=== PATIENT | female | born 1945 | race Hispanic/Latino ===

== ENCOUNTER 2017-06-11 13:05 | Emergency (ER) | payer MEDICARE, OTHER ==
[2017-06-11 13:05] VITALS: BMI 32.5
[2017-06-11 14:25] VITALS: RESP 18; O2SAT 100
[2017-06-11 14:46] VITALS: TEMP 98
--- NOTE | 2017-06-11 14:48 | RAD ---
HISTORY: sob COMPARISON: 09/25/2016 FINDINGS: LUNGS: Linear scar/ atelectasis at left lung base. No other abnormal opacity. . PLEURA: No significant pleural effusion identified, no pneumothorax apparent. CARDIOVASCULAR: Normal. OSSEOUS STRUCTURES: No significant abnormalities. VISUALIZED UPPER ABDOMEN: Normal. OTHER FINDINGS: None. IMPRESSION: Linear scar/ atelectasis at left base. Otherwise unremarkable examination.
[2017-06-11 15:03] LABS: BASO # 0.02 K/mm3 (0.0-2.0); BASO % 0.2 % (0.0-3.0); EOS # 0.2 (0.0-0.7); EOS % 1.8 % (1.5-5.0); GRAN # 6.96 (1.4-6.5); HEMATOCRIT 33.5 % (36.0-48.0); LYMPH # 1.8 (1.2-3.4); LYMPH % 19.3 % (22.0-35.0); MEAN CELL VOLUME 88.4 fl (80.0-105.0); MEAN CORPUSCULAR HEMOGLOBIN 29.3 pg (25.0-35.0); MEAN CORPUSCULAR HGB CONC 33.1 g/dl (31.0-37.0); MEAN PLATELET VOLUME 10.4 fl (7.0-11.0); MONO # 0.5 (0.1-0.6); MONO % 5.7 % (1.0-6.0); WHITE BLOOD COUNT 9.5 10^3/ul (4.5-11.0)
[2017-06-11 15:13] LABS: URINE BILIRUBIN NEGATIVE (NEGATIVE); URINE BLOOD TRACE-INTACT (NEGATIVE); URINE GLUCOSE (UA) >=1000 mg/dL (NEGATIVE); URINE KETONE NEGATIVE (NEGATIVE); URINE LEUKOCYTE ESTERASE TRACE Leu/uL (NEGATIVE); URINE PROTEIN NEGATIVE mg/dL (<30 mg/dL); URINE UROBILINOGEN 0.2 E.U./dL (<1 E.U./dL)
[2017-06-11 15:14] LABS: ALB/GLOB RATIO 1.4 (1.1-1.8); BILIRUBIN,TOTAL 0.5 mg/dL (0.2-1.3); CALCIUM 9.9 mg/dL (8.4-10.5); MAGNESIUM 2.3 mg/dL (1.7-2.2); POTASSIUM 4.7 mmol/L (3.6-5.0); TOTAL PROTEIN 7.3 g/dL (5.8-8.3)
[2017-06-11 15:17] LABS: INR 0.99 (0.93-1.08); PARTIAL THROMBOPLASTIN TIME 27.4 Seconds (23.7-30.8)
[2017-06-11 15:17] LABS: URINE APPEARANCE CLEAR (CLEAR); URINE COLOR YELLOW (YELLOW)
[2017-06-11 15:26] LABS: TROPONIN I 0.09 ng/mL
[2017-06-11 15:37] LABS: URINE BACTERIA FEW (NEG); URINE RBC 0 - 2 /hpf (0-2)
[2017-06-11] MEDS ORDERED: Insulin Regular 1 UNITS/0.01 ML ML SC STA (17:05)
--- NOTE | 2017-06-11 17:31 | CARD ---
APPROVED REPORT EKG Measurement Heart [id number] OH 196P59 [id number] <Conclusion> Normal sinus rhythm Left axis deviation Anterolateral infarct, age undetermined Abnormal ECG
--- NOTE | 2017-06-11 19:25 | ED PDOC ---
Arrival/HPI - General Historian: Patient <Catherine Chang - Last Filed: 06/11/17 19:22> <Stevie Quinones - Last Filed: 06/11/17 21:53> - General Chief Complaint: Anxiety Time Seen by Provider: 06/11/17 14:05 - History of Present Illness Narrative History of Present Illness (Text): 06/11/17 19:23 Patient c/o SOB x 1 week. Patient sts she was seen by Dr. Adler who instructed her to come to Ed for evaluation. (Catherine Chang) Past Medical History - Infectious Disease Hx of Infectious Diseases: None - Cardiac Hx Hypertension: Yes - Neurological Hx Paralysis: No - Endocrine/Metabolic Hx Diabetes Mellitus Type 2: Yes - Hematological/Oncological Hx Blood Transfusions: No - Musculoskeletal/Rheumatological Hx Arthritis: Yes - Psychiatric Hx Emotional Abuse: No Hx Physical Abuse: No Hx Substance Use: No - Anesthesia Hx Anesthesia: No Hx Anesthesia Reactions: No Hx Malignant Hyperthermia: No - Suicidal Assessment Feels Threatened In Home Enviroment: No <Catherine Chang - Last Filed: 06/11/17 19:22> Family/Social History Family/Social History: Unknown Family HX Smoking Status: Never Smoked Hx Alcohol Use: No Hx Substance Use: No <Catherine Chang - Last Filed: 06/11/17 19:22> Allergies/Home Meds <Catherine Chang - Last Filed: 06/11/17 19:22> <Stevie Quinones - Last Filed: 06/11/17 21:53> Allergies/Adverse Reactions: Allergies No Known Allergies Allergy (Verified 01/31/12 13:15) Home Medications: Home Meds Medication Instructions Recorded Confirmed Aspirin [Adult Low Dose Aspirin EC] 81 mg PO DAILY 03/31/16 06/11/17 Furosemide [Lasix] 40 mg PO DAILY 03/31/16 06/11/17 Glimepiride [amaRYL] 4 mg PO HS 03/31/16 06/11/17 LORazepam [Ativan] 0.5 mg PO BID 03/31/16 06/11/17 Lisinopril [Zestril] 20 mg PO BID 03/31/16 06/11/17 Metformin HCl [Metformin HCl] 500 mg PO DAILY 03/31/16 06/11/17 Pioglitazone [Actos] 30 mg PO DAILY 03/31/16 06/11/17 Valsartan [Diovan] 40 mg PO DAILY 03/18/17 06/11/17 Review of Systems - Physician Review All systems were reviewed & negative as marked: Yes - Review of Systems Respiratory: SOB. absent: Cough, Sputum, Wheezing Cardiovascular: absent: Chest Pain, Palpitations, Edema, Calf Pain <Catherine Chang - Last Filed: 06/11/17 19:22> Physical Exam Vital Signs Reviewed: Yes Temperature: Afebrile Blood Pressure: Normal Pulse: Regular Respiratory Rate: Normal Appearance: Positive for: Uncomfortable (SOB) Pain Distress: None Mental Status: Positive for: Alert and Oriented X 3, other (mildly anxious) Finger Stick Blood Glucose: 254 - Systems Exam Head: Present: Atraumatic, Abrasion Pupils: Present: PERRL Extroacular Muscles: Present: EOMI Conjunctiva: Present: Normal Respiratory/Chest: Present: Clear to Auscultation, Good Air Exchange. No: Respiratory Distress, Accessory Muscle Use, Wheezes, Decreased Breath Sounds, Rales, Rhonchi, Tender to Palpation Cardiovascular: Present: Regular Rate and Rhythm, Normal S1, S2 Abdomen: Present: Normal Bowel Sounds. No: Tenderness, Distention Back: Present: Normal Inspection. No: Midline Tenderness, Paraspinal Tenderness Upper Extremity: Present: Normal Inspection, Normal ROM Lower Extremity: Present: Normal Inspection. No: Edema, CALF TENDERNESS Neurological: Present: GCS=15, Motor Func Grossly Intact, Normal Sensory Function Skin: Present: Warm. No: Rashes <Catherine Chang - Last Filed: 06/11/17 19:22> Vital Signs Temp Pulse Resp BP Pulse Ox 06/11/17 14:45 98.0 F 74 18 142/62 100 06/11/17 13:05 98.7 F 88 18 100 Medical Decision Making - Transfer of Care Patient signed out to :Cherie Quinones Pending Radiology Studies:: VQ scan <Catherine Chang - Last Filed: 06/11/17 19:22> <Stevie Quinones - Last Filed: 06/11/17 21:53> ED Course and Treatment: 06/11/17 19:29 D-Dimer is selevated. BUN/Creat are elevated. VQ scan ordered. patient was seen in ED by her passenger car upholsterer apprentice and by her PMD . Plan is to do VQ scan, if negative to d/c. (Catherine Chang) 06/11/17 20:20 Patient to follow-up with VQ scan. If results are negative, patient is to follow up with PMD and passenger car upholsterer apprentice. 06/11/17 21:05 NM Lung Perfusion and Ventilation Scan IMPRESSION: No findings to suggest pulmonary embolism. Dictator: Darinel Omer MD 06/11/17 21:43 Patient feels much better and no longer having symptoms. Patient was evaluated by Dr. Velazco and Dr Adler and can follow up with them as an outpatient. Patient wants to go home . She understands to return to the ED if symptoms worsen or any other concerns. (Stevie Quinones) - Lab Interpretations Lab Results: 06/11/17 14:35 06/11/17 14:35 Lab Results 06/11/17 17:53: POC Glucose (mg/dL) 254 H 06/11/17 15:00: D-Dimer, Quantitative 4.92 H 06/11/17 14:55: Urine Color Yellow, Urine Appearance Clear, Urine pH 6.0, Ur Specific Peerless <= 1.005, Urine Protein Negative, Urine Glucose (UA) >=1000, Urine Ketones Negative, Urine Blood Trace-intact H, Urine Nitrate Negative, Urine Bilirubin Negative, Urine Urobilinogen 0.2, Ur Leukocyte Esterase Trace H , Urine RBC 0 - 2, Urine WBC 1 - 3, Ur Epithelial Cells 3 - 4, Urine Bacteria Few 06/11/17 14:35: PT 10.7, INR 0.99, APTT 27.4 06/11/17 14:35: Sodium 140, Potassium 4.7, Chloride 101, Carbon Dioxide 27, Anion Gap 17, BUN 45 H, Creatinine 2.1 H, Est GFR ( Amer) 28, Est GFR ( Non-Af Amer) 23, Random Glucose 327 H* D, Calcium 9.9, Magnesium 2.3 H, Total Bilirubin 0.5, AST 22, ALT 26, Alkaline Phosphatase 63, Lactate Dehydrogenase 550, Total Creatine Kinase 58, Troponin I 0.09 D, NT-Pro-B Natriuret Pep 304, Total Protein 7.3, Albumin 4.2, Globulin 3.1, Albumin/Globulin Ratio 1.4 06/11/17 14:35: WBC 9.5 D, RBC 3.79, Hgb 11.1 L, Hct 33.5 L, MCV 88.4, MCH 29.3 , MCHC 33.1, RDW 15.0 H, Plt Count 378, MPV 10.4, Gran % 73.0 H, Lymph % (Auto) 19.3 L, Emanuel % (Auto) 5.7, Eos % (Auto) 1.8, Baso % (Auto) 0.2, Gran # 6.96 H, Lymph # 1.8, Emanuel # 0.5, Eos # 0.2, Baso # 0.02 - RAD Interpretation Narrative RAD Interpretations (Text): 06/11/17 19:27 Accession No. : [id number] Patient Name / ID : FINN HERNANDEZ / [id number] Exam Date : 06/11/2017 14:30:43 ( Approved ) Study Comment : Sex / Age : F / 72Y Creator : Sawyer Caldwell MD Dictator : Sawyer Caldwell MD Drawer Liner : It Senior Analyst : Sawyer Caldwell MD Approver2 : Report Date : 06/11/2017 14:46:42 My Comment : HISTORY: sob COMPARISON: 09/25/2016 FINDINGS: LUNGS: Linear scar/ atelectasis at left lung base. No other abnormal opacity. . PLEURA: No significant pleural effusion identified, no pneumothorax apparent. CARDIOVASCULAR: Normal. OSSEOUS STRUCTURES: No significant abnormalities. VISUALIZED UPPER ABDOMEN: Normal. OTHER FINDINGS: None. IMPRESSION: Linear scar/ atelectasis at left base. Otherwise unremarkable examination. (Catherine Chang) Radiology Orders: 06/11/17 14:26 CHEST PORTABLE [RAD] Stat 06/11/17 17:07 LUNG PERF & VENT SCAN [NM] Stat - EKG Interpretation EKG Interpretation (Text): 06/11/17 19:28 Report Date : 06/11/2017 17:30:51 My Comment : APPROVED REPORT EKG Measurement Heart Rate 77 AXES SC 196 P 59 QRSd 88 QRS -39 QT 368 T 44 QTc 416 <Conclusion> Normal sinus rhythm Left axis deviation Anterolateral infarct, age undetermined Abnormal ECG (Catherine Chang) - Medication Orders Current Medication Orders: Acetaminophen (Tylenol 325mg Tab) 650 mg PO STAT STA Stop: 06/11/17 21:44 Discontinued Medications Insulin Human Regular (Humulin R) 6 units SC STAT STA PRN Reason: Protocol Stop: 06/11/17 17:06 Last Admin: 06/11/17 21:39 Dose: Not Given Non-Admin Reason: Blood Sugar Parameter Comments: MELISSA Alexander aware, ordered to hold medication due to FS. MAR Blood Glucose Document 06/11/17 21:39 EQ (Rec: 06/11/17 21:39 EQ [id number]) Blood Glucose Finger Stick Blood Glucose (70-120) 254 Disposition/Present on Arrival - Present on Arrival Any Indicators Present on Arrival: Yes History of DVT/PE: No History of Uncontrolled Diabetes: No Urinary Catheter: No History of Decub. Ulcer: No History Surgical Site Infection Following: None - Disposition Have Diagnosis and Disposition been Completed?: Yes Disposition Time: 19:30 <Catherine Chang - Last Filed: 06/11/17 19:22> - Disposition Disposition Time: 21:53 Patient Plan: Discharge <Stevie Quinones - Last Filed: 06/11/17 21:53> - Disposition Diagnosis: SOB (shortness of breath) Disposition: HOME/ ROUTINE Patient Problems: Current Active Problems Problem Status Onset SOB (shortness of breath) Acute Condition: IMPROVED Discharge Instructions (ExitCare): Dyspnea (ED) Additional Instructions: Ms Mendez, thank you for letting us take care of you today. Your provider was Dr. Quinones You were treated for Shortness of breathe. The emergency medical care you received today was directed at your acute symptoms. If you were prescribed any medication, please fill it and take as directed. It may take several days for your symptoms to resolve. Return to the Emergency Department if your symptoms worsen, do not improve, or if you have any other problems. Please contact your doctor or call one of the physicians/clinics you have been referred to that are listed on the Patient Visit Information form that is included in your discharge packet. Bring any paperwork you were given at discharge with you along with any medications you are taking to your follow up visit. Our treatment cannot replace ongoing medical care by a primary care provider (PCP) outside of the emergency department. Thank you for allowing the [facility] team to be part of your care today. If you had an X-Ray or CT scan: A Radiologist will review the ED reading if any change in treatment is needed we will contact you. If you had a blood, urine, or wound culture: It will take several days for the results, if any change in treatment is needed we will contact you. If you had an STI test: It will take 48 hours for the results. Please call after 1 week if you have not heard back. Referrals: Lamont Adler, [Primary Care Provider] - Follow up with primary Forms: [employer] ([place])
[2017-06-11 22:02] VITALS: BP 111/88; PULSE 79
--- NOTE | 2017-06-23 18:46 | NM ---
COMPARISON: TECHNIQUE: 40.0 mCi technetium 99-m DTPA aerosol 4.0 mCI technetium 99-m MAA administered intravenously. FINDINGS: VENTILATION COMPONENT: Normal. PERFUSION COMPONENT: Normal. The report concurs with the preliminary [facility] report IMPRESSION: Lowprobability ventilation perfusion scan for pulmonary embolism.
== END 2017-06-11 23:10 | disposition home or self-care (01) ==
LOC: ED 13:05
DX: R06.02 Shortness of breath (principal); E11.9 Type 2 diabetes mellitus without complications; I10 Essential (primary) hypertension

== ENCOUNTER 2017-12-26 10:35 | Inpatient (IN) | payer MEDICARE, OTHER ==
--- NOTE | 2017-12-26 11:21 | ED PDOC ---
Arrival/HPI - General Chief Complaint: Abnormal Skin Integrity Time Seen by Provider: 12/26/17 11:16 Historian: Patient, Other (granddaughter) - History of Present Illness Narrative History of Present Illness (Text): 12/26/17 11:18 pt p/w ~ 3 weeks onset of b/l lower ext swelling with blister formation; pt states swelling seems to be getting slightly worse and right lower leg wound is also getting worse with large blister formation and skin redness; pt with leg tightness/cramps; pt states + gradual weakness, feeling anxious; no fever/chills , + intermittent sweats, no cp/sob/palpitations, no abd pain, no n/v, no numbness/tingling, no urinary/bowel changes; pt was seen by Dr Adler 2 weeks ago but did not have an abx prescribed noted by patient; pt states fall/trauma/ sick contact, no traveling representative's daughter did not like the progress of pt's leg wounds and decided to bring pt to ED for further eval. pt also noted ~ 3 weeks onset of skin rashes underneath her breasts/under her abd pannus (dr Adler had prescribed her cream, which patient states is gradually improving) pt's without other complaints PCP: DR Karri Adler pt lives with granddaughter pt does not know her last Tetanus shot Time/Duration: > week (2weeks) Symptom Onset: Gradual Symptom Course: Worsening Quality: Tightness Severity Level: Moderate Activities at Onset: Rest Context: Home Past Medical History - Provider Review Nursing Documentation Reviewed: Yes - Travel History Have you recently traveled outside [place] w/in the past 3 mons?: No - Past History Past History: No Previous - Infectious Disease Hx of Infectious Diseases: None - Tetanus Immunization Tetanus Immunization: Unknown - Reproductive Menopause: Yes Currently : No - Cardiac Hx Hypertension: Yes - Neurological Hx Paralysis: No - Endocrine/Metabolic Hx Diabetes Mellitus Type 2: Yes - Hematological/Oncological Hx Blood Transfusions: No - Musculoskeletal/Rheumatological Hx Arthritis: Yes - Psychiatric Hx Emotional Abuse: No Hx Physical Abuse: No Hx Substance Use: No - Anesthesia Hx Anesthesia: No Hx Anesthesia Reactions: No Hx Malignant Hyperthermia: No - Suicidal Assessment Feels Threatened In Home Enviroment: No Family/Social History - Physician Review Nursing Documentation Reviewed: Yes Family/Social History: No Known Family HX Smoking Status: Never Smoked Hx Alcohol Use: No Hx Substance Use: No Hx Substance Use Treatment: No Allergies/Home Meds Allergies/Adverse Reactions: Allergies No Known Allergies Allergy (Verified 12/26/17 12:53) Home Medications: Home Meds Medication Instructions Recorded Confirmed Aspirin [Adult Low Dose Aspirin EC] 81 mg PO DAILY 03/31/16 12/26/17 Furosemide [Lasix] 40 mg PO DAILY 03/31/16 12/26/17 Glimepiride [amaRYL] 4 mg PO HS 03/31/16 12/26/17 LORazepam [Ativan] 0.5 mg PO BID 03/31/16 12/26/17 Lisinopril [Zestril] 20 mg PO BID 03/31/16 12/26/17 Metformin HCl [Metformin HCl] 500 mg PO DAILY 03/31/16 12/26/17 Pioglitazone [Actos] 30 mg PO DAILY 03/31/16 12/26/17 Valsartan [Diovan] 40 mg PO DAILY 03/18/17 12/26/17 Review of Systems - Review of Systems Constitutional: Fatigue, Night Sweats Eyes: Normal ENT: Normal Respiratory: Normal. absent: SOB Cardiovascular: Edema. absent: Chest Pain, Palpitations, Orthopnea Gastrointestinal: Normal. absent: Abdominal Pain, Nausea, Vomiting Genitourinary Female: Normal Musculoskeletal: Other (b/l lower leg swelling). absent: Arthralgias, Back Pain Skin: Cellulitis Neurological: Dizziness. absent: Headache, Speech Changes, Facial Droop Endocrine: Normal Hemo/Lymphatic: Normal Psychiatric: Anxiety. absent: Depression, Suicidal Ideation Physical Exam Vital Signs Reviewed: Yes Vital Signs Temp Pulse Resp BP Pulse Ox 12/26/17 12:54 139/81 12/26/17 11:22 98.0 F 107 H 18 212/119 H 100 Temperature: Afebrile Blood Pressure: Hypertensive Pulse: Tachycardic Respiratory Rate: Normal Appearance: Positive for: Well-Appearing, Non-Toxic, Uncomfortable, Other ( uncomfortable, resting in bed, alert/awake, NAD, + jittery/anxious appearing, cooperative) Pain Distress: None Mental Status: Positive for: Alert and Oriented X 3 - Systems Exam Head: Present: Atraumatic, Normocephalic Pupils: Present: PERRL, Other (no nystagmus, no photophobia, sclera anicteric; visual field intact b/l) Extroacular Muscles: Present: EOMI Conjunctiva: Present: Normal Ears: Present: Normal Mouth: Present: Moist Mucous Membranes, Other (fair dentitions, no drooling/ stridor, no exudate/lesions, uvula/) Pharnyx: Present: Normal Nose (External): Present: Atraumatic Nose (Internal): Present: Normal Inspection Neck: Present: Normal Range of Motion, Trachea Midline, Other (intact ROM, no midline tenderness, no nuchal rigidity, no meningeal signs/step off). No: Meningeal Signs, MIDLINE TENDERNESS, Paraspinal Tenderness Respiratory/Chest: Present: Clear to Auscultation, Good Air Exchange, Other ( CTA b/l, no w/r/r; no accessory muscle use noted). No: Respiratory Distress, Accessory Muscle Use, Wheezes Cardiovascular: Present: Regular Rate and Rhythm, Normal S1, S2. No: Murmurs Abdomen: Present: Normal Bowel Sounds, Other (+ well nourished/obese female, no focal tenderness, no sauceda's sign, no mcburney's point tenderness, no masses/ rebound/guarding/rigidity). No: Tenderness, Distention Back: Present: Normal Inspection. No: CVA Tenderness, Midline Tenderness, Paraspinal Tenderness Upper Extremity: Present: Normal Inspection, Normal ROM, NORMAL PULSES, Neurovascularly Intact. No: Edema, Swelling Lower Extremity: Present: Edema, NORMAL PULSES, Neurovascularly Intact, Other ( decr ROM due to generalized swelling; + pitting edema +2-3/5 b/l up to distal knee, + old healing wound noted to left distal/mid anterior leg, noted ~ 25% TBSA of lower Right extremity skin erythema with central region of skin ulceration, dry/non-weeping/no discharge expressible, + tenderness on exam over the wound, NON-fluctuant/non-indurated, no bogginess noted; no blisters/vesicles /bullaes noted b/l) Neurological: Present: GCS=15, CN II-XII Intact, Speech Normal Skin: Present: Warm, Normal Color, Other (noted b/l interdigineous region of the breast and the lower abd/pelvic region diffuse skin erythema (likely fungal infection); as described above right lower ext skin erythema (consistent with leg cellulitis); cap refill ~ 1sec, no petechiae, no pallor) Psychiatric: Present: Alert, Oriented x 3 Medical Decision Making ED Course and Treatment: 12/26/17 11:20 Impression: b/l leg swelling with blister formation i have consider all the differential diagnosis regarding pt's chief medical complaints/clinical findings, including but are not limited to: skin infection/ cellulitis; edema b/l, A/P: b/l leg swelling with wound right lower leg > left - labs - iv - xray - us - blood culture - supportive care - observe/reevaluation 12/26/17 12:08 due to patients symptoms and vital sign derangements, will recommend admission for the patient Dr Karri ADLER is at bedside, made aware, agrees with ED mgt/txt/dx, agrees with admission; to consult Dr Velazco/Carlos Enrique 12/26/17 12:54 vital signs normalized pt is comfortable pt is not in any distress currently pt/family are made aware of pt's medical results agrees with admission Re-evaluation Time: 13:05 - Critical Care Critical Care Minutes: 45 minutes Critical Care Time: Excluding Proc Time Narrative Critical Care (Text): 12/26/17 12:53 critical care time: 45min, excluding procedure time, excluding time teaching residents/students/mid-level providers; including initial eval/diagnosis, diagnostic interpretation, re-eval, consultations, final disposition - Lab Interpretations Lab Results: 12/26/17 12:08 12/26/17 12:08 Lab Results 12/26/17 12:08: Sodium 142, Chloride 99, Potassium 4.5, Carbon Dioxide 27, Anion Gap 20, BUN 62 H, Creatinine 2.4 H, Est GFR ( Amer) 24, Est GFR ( Non-Af Amer) 20, Random Glucose 284 H, Calcium 10.0, Phosphorus 3.6, Magnesium 2.4 H, Total Bilirubin 0.3, AST 24, ALT 25, Alkaline Phosphatase 62, Troponin I < 0.01 D, NT-Pro-B Natriuret Pep 240, Total Protein 8.0, Albumin 4.6, Globulin 3.4, Albumin/Globulin Ratio 1.4 12/26/17 12:08: pO2 49, VBG pH 7.40, VBG pCO2 46.0, VBG HCO3 28.5 H, VBG Total CO2 29.9 H, VBG O2 Sat (Calc) 89.6 H, VBG Base Excess 3.0 H, VBG Potassium 4.5, Sodium 139.0, Chloride 102.0, Glucose 298 H, Lactate 3.7 H, FiO2 21.0, Venous Blood Potassium 4.5 12/26/17 12:08: Urine Color Light yellow, Urine Appearance Clear, Urine pH 6.0, Ur Specific [place] 1.010, Urine Protein Negative, Urine Glucose (UA) 500 H, Urine Ketones Negative, Urine Blood Negative, Urine Nitrate Negative, Urine Bilirubin Negative, Urine Urobilinogen 0.2, Ur Leukocyte Esterase Negative 12/26/17 12:08: PT 10.8, INR 0.94, APTT 30.5 12/26/17 12:08: WBC 11.4 H D, RBC 3.77, Hgb 11.0 L, Hct 33.9 L, MCV 89.9, MCH 29.2, MCHC 32.4, RDW 14.8 H, Plt Count 427, MPV 10.5, Gran % 75.9 H, Lymph % ( Auto) 16.7 L, Russell % (Auto) 4.7, Eos % (Auto) 2.3, Baso % (Auto) 0.4, Gran # 8.67 H, Lymph # (Auto) 1.9, Russell # (Auto) 0.5, Eos # (Auto) 0.3, Baso # (Auto) 0.05 I have reviewed the lab results: Yes Interpretation: Abnormal lab values (elevated lactic acid, elevated BUN/CREAT ( chronic)) - RAD Interpretation Narrative RAD Interpretations (Text): 12/26/17 12:54 prelim U/S lower ext - NEGATIVE DVT 12/26/17 13:17 HISTORY: sepsis r/o COMPARISON: 06/11/2017 TECHNIQUE: Chest PA and lateral FINDINGS: LUNGS: No active pulmonary disease. PLEURA: No significant pleural effusion identified. No pneumothorax apparent. CARDIOVASCULAR: Normal. OSSEOUS STRUCTURES: No significant abnormalities. Degenerative changes in the spine. VISUALIZED UPPER ABDOMEN: Normal. OTHER FINDINGS: None. IMPRESSION: No focal infiltrate. No CHF. Mild old improvement aeration from prior study. 12/26/17 14:04 PROCEDURE: Radiographs of the right tibia and fibula. HISTORY: right lower leg swelling/wound COMPARISON: None available. TECHNIQUE: Three views of the right tibia and fibula were performed for swelling and wound. FINDINGS: BONES: No fracture is seen. No lytic process is noted. No periosteal reaction is noted. No erosions are seen. JOINT SPACES: Images in the foot region reveal degenerative changes in the midfoot region as well as posterior and plantar calcaneal spurring. Mild degenerative changes are seen in the subtalar joint. OTHER FINDINGS: There is diffuse soft tissue swelling overlying the right lower leg region. No radiopaque foreign body is noted. IMPRESSION: No plain film evidence of fracture. No plain film evidence of osteomyelitis. Radiology Orders: 12/26/17 11:23 DUPLEX LOWER EXTRM VEIN BILAT [US] Stat 12/26/17 11:32 CHEST TWO VIEWS (PA/LAT) [RAD] Stat TIBIA FIBULA RIGHT [RAD] Stat Ditch Rider: Radiologist - EKG Interpretation EKG Interpretation (Text): 12/26/17 12:05 Sinus tach at 110 bpm, LAD, no ectopy, qs in leads V1/I/L, poor R-wave progression, no st changes, ABNL EKG; unchanged compare with old ekg 05/2017 Interpreted by ED Physician: Yes Type: 12 lead EKG Comparison: Similar to previous EKG - Medication Orders Current Medication Orders: Aspirin (Ecotrin) 81 mg PO DAILY JONAH Furosemide (Lasix) 40 mg IVP DAILY JONAH Glimepiride (Amaryl) 4 mg PO HS JONAH Sodium Chloride (Sodium Chloride 0.9%) 1,000 mls @ 100 mls/hr IV .Q10H JONAH Last Admin: 12/26/17 12:55 Dose: 100 mls/hr eMAR Start Stop Document 12/26/17 12:55 RD (Rec: 12/26/17 12:55 RD [id number]) Intravenous Solution Start Date 12/26/17 Start Time 12:55 Piperacillin Sod/Tazobactam Sod (Zosyn 2.25 Gm In 0.9% 100 Ml) 2.25 gm in 100 mls @ 100 mls/hr IVPB Q8H JONAH PRN Reason: Protocol Stop: 12/26/17 21:29 Last Admin: 12/26/17 12:55 Dose: Insulin Human Regular (Humulin R Med) 0 units SC ACHS JONAH PRN Reason: Protocol Lorazepam (Ativan) 0.5 mg PO BID JONAH PRN Reason: Protocol Losartan Potassium (Cozaar) 50 mg PO DAILY JONAH Metformin HCl (Glucophage) 500 mg PO DAILY JONAH Pioglitazone HCl (Actos) 30 mg PO DAILY JONAH Discontinued Medications Furosemide (Lasix) 40 mg IVP STAT STA Stop: 12/26/17 11:34 Last Admin: 12/26/17 12:54 Dose: 40 mg MAR Blood Pressure Document 12/26/17 12:54 RD (Rec: 12/26/17 12:54 RD [id number]) Blood Pressure Blood Pressure (100/60-150/90) 139/81 IVP Administration Document 12/26/17 12:54 RD (Rec: 12/26/17 12:54 RD [id number]) Charges for Administration # of IVP Administrations 1 Piperacillin Sod/Tazobactam Sod (Zosyn 4.5 Gm In Ns 100ml) 4.5 gm in 100 mls @ 200 mls/hr IVPB STAT STA PRN Reason: Protocol Stop: 12/26/17 11:52 Last Admin: 12/26/17 12:53 Dose: 200 mls/hr eMAR Start Stop Document 12/26/17 12:53 RD (Rec: 12/26/17 12:54 RD [id number]) Intravenous Solution Start Date 12/26/17 Start Time 12:53 End Date 12/26/17 End time 13:23 Total Infusion Time 30 Labetalol HCl (Trandate) 20 mg IV STAT STA Stop: 12/26/17 11:50 Last Admin: 12/26/17 12:58 Dose: Not Given Non-Admin Reason: BP Parameters Not Met Comments: Dr. Mckee aware. Tetanus/Reduced Diphtheria/Acell Pertussis (Boostrix Vaccine Inj) 0.5 ml IM .ONCE ONE Stop: 12/26/17 11:24 Last Admin: 12/26/17 12:59 Dose: 0.5 ml MAR Immunization Data Document 12/26/17 12:59 RD (Rec: 12/26/17 12:59 RD [id number]) Immunization Data Vaccine Information Sheet Given Yes Vaccine Information Sheet Given Date 12/26/17 Immunization Registry Document 12/26/17 12:59 RD (Rec: 12/26/17 12:59 RD [id number]) Immunization Registry Consent Date 10/13/17 Disposition/Present on Arrival - Present on Arrival Any Indicators Present on Arrival: No History of DVT/PE: No History of Uncontrolled Diabetes: No Urinary Catheter: No History of Decub. Ulcer: No History Surgical Site Infection Following: None - Disposition Have Diagnosis and Disposition been Completed?: Yes Diagnosis: Cellulitis of right leg, Leg edema, Renal insufficiency, At risk for sepsis Disposition: HOSPITALIZED Disposition Time: 11:30 Patient Plan: Admission, Telemetry Patient Problems: Current Active Problems Problem Status Onset Cellulitis of right leg Acute Leg edema Acute Renal insufficiency Acute Condition: STABLE
[2017-12-26] MEDS ORDERED: Piperacill/Tazo 4.5gm in NS 4.5 GM/100 ML BAG IVPB STA (11:23)
[2017-12-26] MEDS ORDERED: TDAP Vaccine 0.5 mL Syr IM ONE (11:23)
[2017-12-26 12:13] LABS: BASO # 0.05 K/mm3 (0.0-2.0); BASO % 0.4 % (0.0-3.0); EOS # 0.3 (0.0-0.7); EOS % 2.3 % (1.5-5.0); GRAN # 8.67 (1.4-6.5); GRAN % 75.9 % (50.0-68.0); LYMPH # 1.9 (1.2-3.4); LYMPH % 16.7 % (22.0-35.0); MEAN CELL VOLUME 89.9 fl (80.0-105.0); MEAN CORPUSCULAR HEMOGLOBIN 29.2 pg (25.0-35.0); MEAN CORPUSCULAR HGB CONC 32.4 g/dl (31.0-37.0); MEAN PLATELET VOLUME 10.5 fl (7.0-11.0); MONO # 0.5 (0.1-0.6); MONO % 4.7 % (1.0-6.0); RBC 3.77 10^6/uL (3.5-6.1); RED CELL DISTRIBUTION WIDTH 14.8 % (11.5-14.5); URINE BILIRUBIN NEGATIVE (NEGATIVE); URINE BLOOD NEGATIVE (NEGATIVE); URINE GLUCOSE (UA) 500 mg/dL (NEGATIVE); URINE LEUKOCYTE ESTERASE NEGATIVE Leu/uL (NEGATIVE); URINE PROTEIN NEGATIVE mg/dL (<30 mg/dL); URINE UROBILINOGEN 0.2 E.U./dL (<1 E.U./dL); WHITE BLOOD COUNT 11.4 10^3/ul (4.5-11.0)
[2017-12-26 12:16] LABS: URINE APPEARANCE CLEAR (CLEAR); URINE COLOR LIGHT YELLOW (YELLOW)
[2017-12-26 12:18] LABS: VENOUS BLOOD GAS PO2 49 mm/Hg (30-55)
[2017-12-26 12:21] LABS: INR 0.94 (0.93-1.08); PARTIAL THROMBOPLASTIN TIME 30.5 Seconds (25.1-36.5); PROTHROMBIN TIME 10.8 SECONDS (9.4-12.5)
[2017-12-26 12:24] LABS: ALB/GLOB RATIO 1.4 (1.1-1.8); ALBUMIN 4.6 g/dL (3.0-4.8); ALT/SGPT 25 U/L (7-56); AST/SGOT 24 U/L (14-36); BLOOD UREA NITROGEN 62 mg/dL (7-21); GFR AFRICAN-AMERICAN 24; GFR NON-AFRICAN AMERICAN 20
[2017-12-26 12:35] LABS: B-TYPE NATRIURETIC PEPTIDE 240 pg/mL (0-450); TROPONIN I < 0.01 ng/mL
[2017-12-26] MEDS: Labetalol 5 mg/ml Inj 20ML IV STA ×2 (12:52→12:58)
[2017-12-26] MEDS: Piperacillin/Tazobact 2.25gm 2.25 GM/100 ML BAG IVPB SCH ×2 (12:55→21:13)
[2017-12-26] MEDS: Sodium Chloride 0.9% 1,000 ML IV SCH ×2 (12:55→21:16)
--- NOTE | 2017-12-26 13:01 | RAD ---
HISTORY: sepsis r/o COMPARISON: 06/11/2017 TECHNIQUE: Chest PA and lateral FINDINGS: LUNGS: No active pulmonary disease. PLEURA: No significant pleural effusion identified. No pneumothorax apparent. CARDIOVASCULAR: Normal. OSSEOUS STRUCTURES: No significant abnormalities. Degenerative changes in the spine. VISUALIZED UPPER ABDOMEN: Normal. OTHER FINDINGS: None. IMPRESSION: No focal infiltrate. No CHF. Mild old improvement aeration from prior study.
--- NOTE | 2017-12-26 13:23 | RAD ---
PROCEDURE: Radiographs of the right tibia and fibula. HISTORY: right lower leg swelling/wound COMPARISON: None available. TECHNIQUE: Three views of the right tibia and fibula were performed for swelling and wound. FINDINGS: BONES: No fracture is seen. No lytic process is noted. No periosteal reaction is noted. No erosions are seen. JOINT SPACES: Images in the foot region reveal degenerative changes in the midfoot region as well as posterior and plantar calcaneal spurring. Mild degenerative changes are seen in the subtalar joint. OTHER FINDINGS: There is diffuse soft tissue swelling overlying the right lower leg region. No radiopaque foreign body is noted. IMPRESSION: No plain film evidence of fracture. No plain film evidence of osteomyelitis.
[2017-12-26] MEDS ORDERED: Vancomycin 1gm in NS 250ml 1 GM/250 ML BAG IVPB STA (13:51)
[2017-12-26 14:56] VITALS: BMI 37.5
[2017-12-26] MEDS ORDERED: Pneumococcal 23-Valent Vaccine IM ONE (14:56)
--- NOTE | 2017-12-26 15:10 | US ---
PROCEDURE: Bilateral lower extremity venous duplex Doppler. HISTORY: leg swelling, ulcerations, increasing pain COMPARISON: None available. TECHNIQUE: Bilateral common femoral, superficial femoral, popliteal and posterior tibial veins were evaluated. Flow was assessed with color Doppler, compressibility, assessment of phasic flow and augmentation response. FINDINGS: COMMON FEMORAL VEIN: Right CFV: Unremarkable. Left CFV: Unremarkable. SUPERFICIAL FEMORAL VEIN: Right SFV: Unremarkable. Left SFV: Unremarkable. POPLITEAL VEIN: Right Popliteal: Unremarkable. Left Popliteal: Unremarkable. POSTERIOR TIBIAL VEIN: Right PTV: Unremarkable. Left PTV: Unremarkable. OTHER FINDINGS: None. IMPRESSION: No evidence of deep venous thrombosis.
[2017-12-26 17:03] LABS: VENOUS BLOOD GAS BASE EXCESS 5.6 mmol/L (0.0-2.0); VENOUS BLOOD GAS PO2 21 mm/Hg (30-55); VENOUS BLOOD PH 7.44 (7.32-7.43)
[2017-12-26] MEDS: Insulin Reg-MEDIUM-Coverage SC SCH ×2 (17:30→21:42)
--- NOTE | 2017-12-26 19:45 | CARD ---
APPROVED REPORT EKG Measurement Heart [id number] <Conclusion> Sinus tachycardia Left axis deviation Possible Anterolateral infarct, age undetermined Abnormal ECG
--- NOTE | 2017-12-26 22:54 | HP ---
HISTORY OF PRESENT ILLNESS: She is a 72-year-old female I know very well is too difficult for her to walk to my office. I saw her on 12/14/2017 at a trailer home. She has a left leg skin irritation, may be a grade 1 ulcer and is difficult for her to walk. There was also swelling of the legs and she was put on Silvadene cream. I have thought I put her on antibiotics, Keflex. She did not receive them. PAST MEDICAL HISTORY: Hypertension, depression, diabetes, obesity, anxiety, renal insufficiency, lumbar disk disease, bilateral knee pain, osteoarthritis, gait dysfunction. ALLERGIES: NO KNOWN DRUG ALLERGIES. PAST SURGICAL HISTORY: She had a D and C and a colonoscopy. Last colonoscopy was on 04/04/2016. FAMILY HISTORY: Father had diabetes and heart disease. SOCIAL HISTORY: No smoking. No drinking. She has a right leg, at this time, cellulitis with ulcers; the left leg is better. Also, some swelling, is very emotional. REVIEW OF SYSTEMS: Worried and scared. No acute vision changes or hearing changes. No ringing in the ears. No sore throat. No chest pain or palpitations. Difficult for her to walk around. There is swelling of the legs. No shortness of breath. There was little bit of a cough every now and then. No nausea, vomiting, diarrhea, constipation, incontinence of urine. She has a very poor gait. No headaches. Very emotional, crying. Both her legs are swollen. The right leg now got some oozing and yellow pus coming out of the right leg. PHYSICAL EXAMINATION: VITAL SIGNS: She has a 98 temperature, 107 pulse, 212/119 blood pressure, it is as high as ever I have seen, 18 respiratory rate, 100% O2 sat on room. I do not known she is taking her medications for her blood pressure. She has been known to be noncompliant in the past for medications as per Cardiology. GENERAL: She is crying. She is definitely stressed. HEENT: Head is atraumatic, normocephalic. Throat is moist. NECK: Supple. HEART: Regular rate. Normal S1, S2. LUNGS: Decreased breath sounds, but clear to auscultation. ABDOMEN: Soft, morbidly obese, nontender. EXTREMITIES: +2/4 pitting edema bilaterally. The right ortiz has a couple of skin tears with yellow pus coming from it. The left leg does not look as bad. THYROID: Midline. NEUROLOGIC: Alert and oriented x3. Cranial II through XII grossly intact. GCS is 15. She is here for cellulitis of the right leg with ulcers, CHF, hypertension, history of diabetes, and anxiety. She will be on IV antibiotics, will be on IV Lasix. We will give medications for blood pressure. Cardiology consult, Infectious Disease consult, physical therapy. We will check her labs tomorrow.. Today, so far she has 11.4 white count, 11 hemoglobin, 32.9 hematocrit with 427 platelets. Her urine is clean waiting for more labs to come back. She will be admitted to the hospital. We will continue to follow her very closely and do the best we can to get her feeling better. Lamont Adler DO MTDD
[2017-12-27] MEDS: Sodium Chloride 0.9% 1,000 ML IV SCH ×2 (02:30→07:58)
[2017-12-27] MEDS: Piperacillin/Tazobact 2.25gm 2.25 GM/100 ML BAG IVPB SCH ×3 (04:06→21:24)
[2017-12-27 07:19] LABS: HEMOGLOBIN 9.5 g/dL (12.0-16.0); MEAN CELL VOLUME 90.3 fl (80.0-105.0); MEAN CORPUSCULAR HEMOGLOBIN 28.8 pg (25.0-35.0); MEAN CORPUSCULAR HGB CONC 31.9 g/dl (31.0-37.0); MEAN PLATELET VOLUME 10.5 fl (7.0-11.0); RBC 3.3 10^6/uL (3.5-6.1); RED CELL DISTRIBUTION WIDTH 15.1 % (11.5-14.5); WHITE BLOOD COUNT 9.1 10^3/ul (4.5-11.0)
[2017-12-27 07:35] LABS: ALB/GLOB RATIO 1.2 (1.1-1.8); ALBUMIN 3.5 g/dL (3.0-4.8)
[2017-12-27] MEDS: Insulin Reg-MEDIUM-Coverage SC SCH ×4 (07:41→21:30)
[2017-12-27] MEDS: Sodium Chloride 0.45% 1,000 ML IV SCH (11:21)
--- NOTE | 2017-12-27 13:04 | CP.PCM.CON ---
History of Present Illness - History of Present Illness History of Present Illness: 72 year old female with PMH of obesity with BMI 37, HTN, DM came into [facility] [place] complaining of continuing right leg blister with surrounding erythema. She states that it was fluid-filled initially and then it burst. She denies animal contacts, no soaking of feet or legs in water, no fever or chills, no nausea or vomiting, no chest pain, no SOB, no headache or dizziness, no sore throat, no rhinorrhea, no abdominal pain, no diarrhea, no dysuria. Infectious diseases consult is requested to further evaluate and manage. Review of Systems - Review of Systems All systems: reviewed and no additional remarkable complaints except (as per HPI ) Past Patient History - Infectious Disease Hx of Infectious Diseases: None - Tetanus Immunizations Tetanus Immunization: Unknown - Past Social History Smoking Status: Never Smoked - CARDIAC Hx Hypertension: Yes - NEUROLOGICAL Hx Paralysis: No - ENDOCRINE/METABOLIC Hx Diabetes Mellitus Type 2: Yes - HEMATOLOGICAL/ONCOLOGICAL Hx Blood Transfusions: No - MUSCULOSKELETAL/RHEUMATOLOGICAL Hx Arthritis: Yes - PSYCHIATRIC Hx Emotional Abuse: No Hx Physical Abuse: No Hx Substance Use: No - SURGICAL HISTORY Hx Surgeries: Yes (D&C-1994 ,COLONOSCOPY MANY YRS AGO) - ANESTHESIA Hx Anesthesia: No Hx Anesthesia Reactions: No Hx Malignant Hyperthermia: No Meds Allergies/Adverse Reactions: Allergies Allergy/AdvReac Type Severity Reaction Status Date / Time No Known Allergies Allergy Verified 12/26/17 12:53 - Medications Medications: Current Medications Aspirin (Ecotrin) 81 mg PO DAILY JONAH Furosemide (Lasix) 40 mg IVP DAILY JONAH Glimepiride (Amaryl) 4 mg PO HS JONAH Sodium Chloride (Sodium Chloride 0.9%) 1,000 mls @ 100 mls/hr IV .Q10H JONAH Last Admin: 12/26/17 12:55 Dose: 100 mls/hr Piperacillin Sod/Tazobactam Sod (Zosyn 2.25 Gm In 0.9% 100 Ml) 2.25 gm in 100 mls @ 100 mls/hr IVPB Q8H JONAH PRN Reason: Protocol Stop: 01/02/18 12:31 Last Admin: 12/26/17 12:55 Dose: Not Given Vancomycin HCl (Vancomycin 1gm) 1 gm in 250 mls @ 167 mls/hr IVPB STAT STA PRN Reason: Protocol Stop: 12/26/17 15:20 Insulin Human Regular (Humulin R Med) 0 units SC ACHS JONAH PRN Reason: Protocol Lorazepam (Ativan) 0.5 mg PO BID JONAH PRN Reason: Protocol Losartan Potassium (Cozaar) 50 mg PO DAILY JONAH Metformin HCl (Glucophage) 500 mg PO DAILY JONAH Pioglitazone HCl (Actos) 30 mg PO DAILY JONAH Physical Exam - Constitutional Appears: Non-toxic, Chronically Ill - Head Exam Head Exam: NORMAL INSPECTION - ENT Exam ENT Exam: Mucous Membranes Moist - Neck Exam Neck exam: Negative for: Lymphadenopathy, Meningismus - Respiratory Exam Respiratory Exam: absent: Rales, Rhonchi - Cardiovascular Exam Cardiovascular Exam: +S1, +S2 - GI/Abdominal Exam GI & Abdominal Exam: Soft. absent: Tenderness - Extremities Exam Additional comments: right leg with anterior part with erythema and some swelling Results - Vital Signs Recent Vital Signs: Last Vital Signs Temp 98.0 F 12/26/17 11:22 Pulse 101 H 12/26/17 13:50 Resp 19 12/26/17 13:50 BP 140/82 12/26/17 13:50 Pulse Ox 99 12/26/17 13:50 - Labs Result Diagrams: 12/27/17 06:30 12/27/17 06:30 Assessment & Plan - Assessment and Plan (Free Text) Plan: Assessment Consider right lower extremity skin and skin structure infection / cellulitis obesity with BMI 37 HTN DM chronic renal failure Plan Started the patient on a dose of IV Vancomycin, and started Zosyn pending blood cx, wound cx; also started patient on topical Mupirocin will monitor clinically
--- NOTE | 2017-12-27 14:48 | PN ---
DATE: 12/27/2017 SUBJECTIVE: I saw her sitting out of bed to chair. She is very upset about being in the hospital. The right leg ulcers are still there with some yellow pus coming out of it, but the swelling is much less with the IV Lasix. She is trying to eat and she is just feeling sad that she is in the hospital. PHYSICAL EXAMINATION: VITAL SIGNS: She has a 98 temp, 64 pulse, 155/56 blood pressure, 18 respiratory rate, 99% O2 sat on room air. HEENT: Head is atraumatic, normocephalic. Throat is moist. NECK: Supple. HEART: Regular rate. LUNGS: Decreased breath sounds, but clear. ABDOMEN: Soft, morbidly obese, nontender. EXTREMITIES: The swelling is much less than the Lasix, but there is right leg ulcers and oozing. I will call in Podiatry. MEDICATIONS: She is currently on Actos, Amaryl, Ativan, Bactroban cream topical twice a day, Cozaar, Ecotrin, Glucophage only at 500 because the blood sugars were low, insulin, Lasix IV 40 mg daily, IV fluids is down to just 40 mL an hour and she is on Zosyn. LABORATORY DATA: She has a 146 sodium, potassium 3.8, BUN 54, creatinine 2.4, GFR is 20. Sugar is 119, 105 and 128 that is why I did not increase the Glucophage. Calcium is 9, total bili is 0.5, AST is 17, ALT is 21, alk phos 48, total protein is 6.3. Lactate was 3.7, the lactate is 3.5, still elevated. She has 9.1 white count, 9.5 hemoglobin, 29.8 hematocrit with 372 platelets. ASSESSMENT AND PLAN: She is being seen by Cardiology, Infectious Disease and we will get Dr. Mack for skin care of the ankle ulcers. We will check her labs tomorrow. IV fluids, IV Lasix and IV antibiotics. We will get her out of bed to chair, get Physical Therapy involved. She is here for cellulitis and ulcers of the right leg. Joie Adler DO [facility] # [id number]
[2017-12-27] MEDS: Nystatin 100,000 Units/gm Topical Pow(15 gm) TOP SCH (18:09)
--- NOTE | 2017-12-27 20:57 | CON ---
DATE: 12/27/2017 COVERING FOR: Sawyer Velazco MD. REASON FOR CONSULTATION: History of congestive heart failure, history of hypertension, cardiac evaluation, admitted with right leg cellulitis. BRIEF CLINICAL HISTORY: This is a 72-year-old female with past medical history significant for hypertension, congestive heart failure, renal insufficiency, anxiety disorder, multiple medical problems, came with blisters on the right leg. Denies any chest pain, denies any shortness of breath, denies any palpitations. The patient used to put Silvadene cream, but did not get better, so came to the emergency room. PAST MEDICAL HISTORY: Significant for hypertension, depression, diabetes, obesity, renal insufficiency, bilateral knee pain, osteoarthritis, gait dysfunction, and lumbar disk disease. PREVIOUS CARDIAC WORKUP: The patient had echocardiography on 06/15/2015 that shows normal chamber size, ejection fraction 65%, trace MR, trace TR, RV systolic pressure of 32 mmHg. CURRENT MEDICATIONS: The patient is taking at home Ativan 0.5 mg three times a day, valsartan 40 mg daily, Actos 30 mg daily, metformin 500 b.i.d., lisinopril 20, glimepiride 4 mg daily, Lasix 40 mg daily, and aspirin 81 mg daily. ALLERGIES: NO KNOWN DRUG ALLERGY. REVIEW OF SYSTEMS: As per HPI. EKG shows sinus tachycardia, left axis deviation, possible anterolateral CO of undetermined age. PHYSICAL EXAMINATION: GENERAL: Height of the patient is 5 feet 1 inch. Weight of the patient is 198 pounds. Body mass index of 38 kg/m2. VITAL SIGNS: Temperature afebrile, heart rate 64, blood pressure 126/49. HEENT: PERRLA. Extraocular muscles intact. NECK: Supple. No carotid bruits, no thyromegaly. CHEST: Clear to auscultation. HEART: S1 and S2 regular. ABDOMEN: Soft. EXTREMITIES: Clubbing and cyanosis negative. LABORATORY DATA: Blood workup as follows: WBC 9.1, hemoglobin 9.5, hematocrit 29.8, and platelet count 372. Chemistry shows sodium 146, potassium 3.8, chloride of 106, carbon dioxide 28, anion gap of 15, BUN 54, and creatinine 2.4. 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 Last echocardiogram in 2014 shows essentially normal ejection fraction 65%, trace mitral regurgitation, trace tricuspid regurgitation. Multiple risks for coronary artery disease, suggest a stress test if not done recently, followup an echocardiogram. Aggressive control of blood pressure and heart rate. We will transfer care tomorrow to Dr. Sawyer Velazco. Avoid nephrotoxic medication. We will put low dose beta joe as blood pressure and heart rate is tolerated and put hydralazine p.r.n. We will get lipid profile, TSH, hemoglobin A1c. If echocardiogram is not done, suggest to do another echocardiogram. Last echocardiogram here in the system was in 2014. The patient states it was done recently. Thank you, Dr. Velazco, for providing me the opportunity in taking care of the patient, Nelly Mendez. Denia Domingo MD
[2017-12-28] MEDS: Piperacillin/Tazobact 2.25gm 2.25 GM/100 ML BAG IVPB SCH (05:54)
[2017-12-28 06:55] LABS: BASO # 0.04 K/mm3 (0.0-2.0); BASO % 0.5 % (0.0-3.0); EOS # 0.3 (0.0-0.7); EOS % 3.4 % (1.5-5.0); GRAN # 5.57 (1.4-6.5); GRAN % 62.9 % (50.0-68.0); HEMOGLOBIN 9.7 g/dL (12.0-16.0); LYMPH # 2.4 (1.2-3.4); LYMPH % 26.7 % (22.0-35.0); MEAN CELL VOLUME 90.5 fl (80.0-105.0); MEAN CORPUSCULAR HEMOGLOBIN 28.9 pg (25.0-35.0); MEAN CORPUSCULAR HGB CONC 31.9 g/dl (31.0-37.0); MEAN PLATELET VOLUME 10.4 fl (7.0-11.0); MONO # 0.6 (0.1-0.6); MONO % 6.5 % (1.0-6.0); RBC 3.36 10^6/uL (3.5-6.1); RED CELL DISTRIBUTION WIDTH 15.3 % (11.5-14.5); WHITE BLOOD COUNT 8.9 10^3/ul (4.5-11.0)
[2017-12-28 07:03] LABS: ALB/GLOB RATIO 1.3 (1.1-1.8); ALBUMIN 3.8 g/dL (3.0-4.8)
[2017-12-28] MEDS ORDERED: Potassium Chloride 20 mEq ER Tab PO ONE (08:22)
[2017-12-28] MEDS: Insulin Reg-MEDIUM-Coverage SC SCH ×4 (09:53→22:51)
[2017-12-28] MEDS: Linezolid 600 mg in D5W 300 ml 600 MG/300 ML BAG IVPB SCH ×2 (09:53→22:50)
[2017-12-28] MEDS: Nystatin 100,000 Units/gm Topical Pow(15 gm) TOP SCH ×2 (09:54→20:09)
--- NOTE | 2017-12-28 10:04 | PN ---
DATE: 12/28/2017 SUBJECTIVE: The patient's swelling in the lower extremities is much improved. The patient is without shortness of breath. OBJECTIVE: VITAL SIGNS: Blood pressure 133/60, heart rate is in the 60s, normal sinus rhythm. NECK: Negative JVD. LUNGS: Without rales. HEART: Reveals S1, S2. EXTREMITIES: Cellulitis noted. LABORATORY DATA: Hemoglobin is 9.7, white count is 8.9. Chemistries: BUN and creatinine is 41 and 2.1 with a glucose of 157. IMPRESSION: 1. Pedal edema. 2. Cellulitis. 3. History of pulmonary hypertension. 4. Renal insufficiency. 5. Diabetes mellitus. 6. Hypertension. Given these findings, we will obtain an echocardiogram to evaluate her LV function. We will need to re-measure her right-sided pressures. Sawyer Velazco MD
[2017-12-28] MEDS: Sodium Chloride 0.45% 1,000 ML IV SCH (10:12)
--- NOTE | 2017-12-28 12:36 | CP.PCM.PN ---
Subjective - Date & Time of Evaluation Date of Evaluation: 12/28/17 Time of Evaluation: 10:10 - Subjective Subjective: Comfortable, no fevers, not in distress, less pain on both legs. Objective - Vital Signs/Intake and Output Vital Signs (last 24 hours): Temp Pulse Resp BP Pulse Ox 98.3 F 60 20 133/60 100 12/28/17 06:00 12/28/17 06:00 12/28/17 06:00 12/28/17 06:00 12/28/17 06:00 Intake and Output: 12/28/17 12/28/17 06:59 18:59 Intake Total 600 Balance 600 - Medications Medications: Current Medications Aspirin (Ecotrin) 81 mg PO DAILY [facility] Last Admin: 12/27/17 10:07 Dose: 81 mg Furosemide (Lasix) 40 mg IVP DAILY [facility] Last Admin: 12/27/17 10:06 Dose: 40 mg Glimepiride (Amaryl) 4 mg PO HS [facility] Last Admin: 12/27/17 21:24 Dose: 4 mg Sodium Chloride (Sodium Chloride 0.45%) 1,000 mls @ 40 mls/hr IV .Q24H [facility] Last Admin: 12/27/17 11:21 Dose: 40 mls/hr Linezolid (Zyvox 600mg/300ml D5w) 600 mg in 300 mls @ 200 mls/hr IVPB Q12 [facility] PRN Reason: Protocol Stop: 01/04/18 10:01 Insulin Human Regular (Humulin R Med) 0 units SC ACHS JON[facility] PRN Reason: Protocol Last Admin: 12/27/17 21:30 Dose: Not Given Lorazepam (Ativan) 0.5 mg PO BID [facility] PRN Reason: Protocol Last Admin: 12/27/17 23:32 Dose: 0.5 mg Losartan Potassium (Cozaar) 50 mg PO DAILY [facility] Last Admin: 12/27/17 10:06 Dose: 50 mg Metformin HCl (Glucophage) 500 mg PO DAILY [facility] Last Admin: 12/27/17 10:06 Dose: 500 mg Mupirocin (Bactroban Ointment) 0 gm TOP BID [facility] Stop: 12/31/17 18:01 Last Admin: 12/27/17 18:08 Dose: 1 g Nystatin (Nystop Topical Powder) 1 gm TOP BID [facility] Last Admin: 12/27/17 18:09 Dose: 1 g Pioglitazone HCl (Actos) 30 mg PO DAILY [facility] Last Admin: 12/27/17 11:21 Dose: 30 mg - Labs Labs: 12/28/17 05:45 12/28/17 05:45 PT 10.8 SECONDS (9.4-12.5) 12/26/17 12:08 INR 0.94 (0.93-1.08) 12/26/17 12:08 APTT 30.5 Seconds (25.1-36.5) 12/26/17 12:08 - Constitutional Appears: Non-toxic, Chronically Ill - Head Exam Head Exam: NORMAL INSPECTION - ENT Exam ENT Exam: Mucous Membranes Moist - Neck Exam Neck Exam: absent: Meningismus - Respiratory Exam Respiratory Exam: Decreased Breath Sounds - Cardiovascular Exam Cardiovascular Exam: +S1, +S2 - GI/Abdominal Exam GI & Abdominal Exam: Soft. absent: Tenderness - Extremities Exam Additional comments: both legs with dressings in place Assessment and Plan - Assessment and Plan (Free Text) Plan: Assessment Consider right lower extremity skin and skin structure infection / cellulitis, growing gram positive cocci obesity with BMI 37 HTN DM chronic renal failure Plan will change antibiotics to Zyvox pending identification and sensitivities of the gram positive cocci in the wound cx; continue topical Mupirocin will continue to monitor clinically
--- NOTE | 2017-12-28 13:23 | PN ---
DATE: 12/28/2017 SUBJECTIVE: I saw that she is getting out of bed to chair. She slept fairly well. It is the first time she is feeling better, more rested. The legs feel a little bit better, not as swollen. There is also less discharge today coming out of the wound. She is on Actos, Amaryl, Ativan, Bactroban, Cozaar, Ecotrin, Glucophage, Lasix, nystatin powder, IV fluids ,and Zosyn IV. OBJECTIVE: VITAL SIGNS: She has a 98.3 temperature, 60 pulse, 133/60 blood pressure, 20 respiratory rate, 100% O2 saturation on room air. HEENT: Head is atraumatic, normocephalic. Throat is moist. NECK: Supple. HEART: Regular rate. LUNGS: Decreased breath sounds bilaterally, but clear to auscultation. ABDOMEN: Soft, nontender. Positive bowel sounds. Morbidly obese. EXTREMITIES: Wrapped, the right one is less swollen no edema. There is no discharge on bandage. DATA: She has 8.9 white count, 9.7 hemoglobin, 30.4 hematocrit with 382 platelets, the lactate was down to 3.5 and 3.7. She has 145 sodium, potassium 3.5, I will give her some potassium today. Her BUN and creatinine are 41 and 2.1, which is improving from when she came in. Last blood sugars are 158 and 157, calcium is 9, phosphorus 3.5, magnesium 2.1, total bili is 0.3, AST is 23, ALT is 27, alkaline phosphatase 47, total protein 6.8. TSH is 1.52. Urine had some sugar in it. She had Gram-positive cocci in Gram stain. She is being seen by Infectious Disease and Cardiology. She had a tib-fib x-ray, which was normal. She has a right lower extremity cellulitis with ulcer, hypertension, diabetes, chronic renal failure. She is on IV vancomycin x1 dose, Zosyn and Bactroban cream topical. Hopefully, we will get out of bed to chair, get more physical therapy as possible and recommendation was TCU for physical therapy and we will see if we can get TCU tomorrow. We will continue IV antibiotics. We will check her labs tomorrow. Lamont Adler DO [facility]
--- NOTE | 2017-12-28 19:26 | CARD ---
APPROVED REPORT EXAM: Two-dimensional and M-mode echocardiogram with Doppler and color Doppler. INDICATION LVFX/CHF 2D DIMENSIONS Left Atrium (2D)2.9 (1.6-4.0cm)IVSd0.9 (0.7-1.1cm) LVDd4.8 (3.9-5.9cm)PWd1.0 (0.7-1.1cm) LVDs2.9 (2.5-4.0cm)FS (%) 39.0 % LVEF (%)69.4 (>50%) M-Mode DIMENSIONS Aortic Root3.00 (2.2-3.7cm)Aortic Cusp Exc.1.60 (1.5-2.0cm) Aortic Valve AoV Peak Krbzydcv724.0cm/Rory Peak GR.10mmHg Mitral Valve MV E Mylgozuf39.9cm/sMV A Qyeixawb58.4cm/sE/A ratio0.7 TDI Lateral E' Peak V12.10cm/sMedial E' Peak V8.58cm/sE/Lateral E'5.2 E/Medial E'7.3 Pulmonary Valve PV Peak Eqatbkge429.0cm/sPV Peak Grad.7mmHg Tricuspid Valve TR Peak Tirhxvry113eo/sRAP SQDTTVMY80pdIaIC Peak Gr.23mmHg [id number] LEFT VENTRICLE The left ventricle is normal size. There is normal left ventricular wall thickness. The left ventricular function is normal. The left ventricular ejection fraction is within the normal range. There is normal LV segmental wall motion. Transmitral Doppler flow pattern is Grade I-abnormal relaxation pattern. RIGHT VENTRICLE The right ventricle is normal size. There is normal right ventricular wall thickness. The right ventricular systolic function is normal. ATRIA The left atrium size is normal. The right atrium size is normal. AORTIC VALVE The aortic valve is normal in structure. No aortic regurgitation is present. There is no aortic valvular stenosis. MITRAL VALVE The mitral valve is normal in structure. There is no mitral valve regurgitation noted. There is no mitral valve stenosis. TRICUSPID VALVE The tricuspid valve is normal in structure. There is mild tricuspid regurgitation. GREAT VESSELS The aortic root is normal in size. The IVC is normal in size and collapses >50% with inspiration. <Conclusion> The left ventricle is normal size. There is normal left ventricular wall thickness. The left ventricular function is normal. The left ventricular ejection fraction is within the normal range. There is normal LV segmental wall motion. Transmitral Doppler flow pattern is Grade I-abnormal relaxation pattern.
--- NOTE | 2017-12-28 19:40 | CP.PCM.CON ---
History of Present Illness - History of Present Illness History of Present Illness: Podiatry Consult Note: Dr. Mack/ Dr. German 72 year old female patient with HTN, depression, DM, obesity, anxiety, renal insufficiency, osteoarthritis was seen and evaluated for bilateral leg superficial blisters. Patient reports that she started to develop blisters on her leg which popped on its own and drained fluids from the legs. Patient reports that her legs were swollen and were red and decided to come to the hospital. Patient denies of having any injuries to the bilateral legs. Denies of any pain in her legs today. Denies of having any recent F/N/V/C/SOB/CP/ Headache/diarrhea. No new pedal complains at this time. PMHx: HTN, depression, DM, obesity, anxiety, renal insufficiency, osteoarthritis PSHx: D&C; colonoscopy Allergies: N.K.D.A Review of Systems - Constitutional Constitutional: As Per HPI Past Patient History - Infectious Disease Hx of Infectious Diseases: None - Tetanus Immunizations Tetanus Immunization: Unknown - Past Social History Smoking Status: Never Smoked - CARDIAC Hx Hypertension: Yes - PULMONARY Hx Respiratory Disorders: Yes Hx Bronchitis: Yes - NEUROLOGICAL Hx Paralysis: No - HEENT Hx HEENT Problems: Yes (WEARS RX GLASSES) - ENDOCRINE/METABOLIC Hx Diabetes Mellitus Type 2: Yes - HEMATOLOGICAL/ONCOLOGICAL Hx Blood Transfusions: No - INTEGUMENTARY Hx Dermatological Problems: Yes Other/Comment: 12-26-17 BILATERAL LEG CELLULITIS,MASD UNDER THE BREAST FOLD, STOMACH FOLD, GROIN AREA HAS IASD. - MUSCULOSKELETAL/RHEUMATOLOGICAL Hx Arthritis: Yes - PSYCHIATRIC Hx Emotional Abuse: No Hx Physical Abuse: No Hx Substance Use: No - SURGICAL HISTORY Hx Surgeries: Yes (D&C-1994 ,COLONOSCOPY MANY YRS AGO) - ANESTHESIA Hx Anesthesia: No Hx Anesthesia Reactions: No Hx Malignant Hyperthermia: No Meds Allergies/Adverse Reactions: Allergies Allergy/AdvReac Type Severity Reaction Status Date / Time No Known Allergies Allergy Verified 12/26/17 12:53 - Medications Medications: Current Medications Aspirin (Ecotrin) 81 mg PO DAILY [facility] Last Admin: 12/28/17 09:52 Dose: 81 mg Furosemide (Lasix) 40 mg IVP DAILY [facility] Last Admin: 12/28/17 09:52 Dose: 40 mg Glimepiride (Amaryl) 4 mg PO HS [facility] Last Admin: 12/27/17 21:24 Dose: 4 mg Sodium Chloride (Sodium Chloride 0.45%) 1,000 mls @ 40 mls/hr IV .Q24H [facility] Last Admin: 12/28/17 10:12 Dose: 40 mls/hr Linezolid (Zyvox 600mg/300ml D5w) 600 mg in 300 mls @ 200 mls/hr IVPB Q12 [facility]ON[facility] PRN Reason: Protocol Stop: 01/04/18 10:01 Last Admin: 12/28/17 09:53 Dose: 200 mls/hr Insulin Human Regular (Humulin R Med) 0 units SC ACHS JONAH PRN Reason: Protocol Last Admin: 12/28/17 16:53 Dose: Not Given Lorazepam (Ativan) 0.5 mg PO BID [facility] PRN Reason: Protocol Last Admin: 12/28/17 09:52 Dose: 0.5 mg Losartan Potassium (Cozaar) 50 mg PO DAILY [facility] Last Admin: 12/28/17 09:52 Dose: 50 mg Metformin HCl (Glucophage) 500 mg PO DAILY [facility] Last Admin: 12/28/17 09:52 Dose: 500 mg Mupirocin (Bactroban Ointment) 0 gm TOP BID [facility] Stop: 12/31/17 18:01 Last Admin: 12/28/17 10:59 Dose: 1 g Nystatin (Nystop Topical Powder) 1 gm TOP BID [facility] Last Admin: 12/28/17 09:54 Dose: 1 g Pioglitazone HCl (Actos) 30 mg PO DAILY [facility] Last Admin: 12/28/17 09:52 Dose: 30 mg Physical Exam - Constitutional Appears: Well, Non-toxic, No Acute Distress - Extremities Exam Additional comments: Bilateral LE exam VASC: DP/PT pulses are palpable 1/4; Cap refill time: < 3 sec to all digits, Temp gradient: warm to cool from proximal to distal, 1+ pitting edema noted on the distal aspect of the medial leg and the dorsum of the foot b/l DERM: superficial epidermal lysis with exposed dermal layer due to de-roofed bullae on the salu lateral right leg as well as on the left leg, the base is fully granular with no fibrosis, no tunneling, no undermining, active serous fluid drainage noted, no malodor, periwound appears to have erythema which does not extend to the knee joint but does extend to the dorsal foot distally; nails are elongated, dystrophic, discolored, no interdigital maceration NEURO: Protective sensation mildly intact ORTHO: MMT: 5/5 in all 4 direction at the AJ, mild pain on palpation of the blistered site - Neurological Exam Neurological exam: Alert, Oriented x3 - Psychiatric Exam Psychiatric exam: Normal Affect, Normal Mood Results - Vital Signs Recent Vital Signs: Last Vital Signs Temp 98.2 F 12/28/17 17:49 Pulse 76 12/28/17 17:49 Resp 18 12/28/17 17:49 BP 165/62 H 12/28/17 17:49 Pulse Ox 100 12/28/17 06:00 - Labs Result Diagrams: 12/28/17 05:45 12/28/17 05:45 Labs: Laboratory Results - last 24 hr 12/27/17 12/28/17 12/28/17 21:09 05:45 05:45 WBC 8.9 RBC 3.36 L Hgb 9.7 L Hct 30.4 L MCV 90.5 MCH 28.9 MCHC 31.9 RDW 15.3 H Plt Count 382 MPV 10.4 Gran % 62.9 Lymph % (Auto) 26.7 [place] % (Auto) 6.5 H Eos % (Auto) 3.4 Baso % (Auto) 0.5 Gran # 5.57 Lymph # (Auto) 2.4 [place] # (Auto) 0.6 Eos # (Auto) 0.3 Baso # (Auto) 0.04 Sodium 145 Potassium 3.5 L Chloride 107 Carbon Dioxide 26 Anion Gap 15 BUN 41 H Creatinine 2.1 H Est GFR ( Amer) 28 Est GFR (Non-Af Amer) 23 POC Glucose (mg/dL) 231 H Random Glucose 157 H Calcium 9.0 Phosphorus 3.5 Magnesium 2.1 Total Bilirubin 0.3 AST 23 ALT 27 Alkaline Phosphatase 47 Total Protein 6.8 Albumin 3.8 Globulin 3.0 Albumin/Globulin Ratio 1.3 Triglycerides 125 Cholesterol 167 LDL Cholesterol Direct 82 HDL Cholesterol 45 TSH 3rd Generation 12/28/17 12/28/17 12/28/17 05:45 07:08 11:52 WBC RBC Hgb Hct MCV MCH MCHC RDW Plt Count MPV Gran % Lymph % (Auto) [place] % (Auto) Eos % (Auto) Baso % (Auto) Gran # Lymph # (Auto) [place] # (Auto) Eos # (Auto) Baso # (Auto) Sodium Potassium Chloride Carbon Dioxide Anion Gap BUN Creatinine Est GFR ( Amer) Est GFR (Non-Af Amer) POC Glucose (mg/dL) 158 H 294 H Random Glucose Calcium Phosphorus Magnesium Total Bilirubin AST ALT Alkaline Phosphatase Total Protein Albumin Globulin Albumin/Globulin Ratio Triglycerides Cholesterol LDL Cholesterol Direct HDL Cholesterol TSH 3rd Generation 1.52 Assessment & Plan - Assessment and Plan (Free Text) Assessment: 72 year old female patient with cellulitis secondary to de-roofed bullae bilaterally Plan: Patient seen and evaluated with attending Dr. Mack Labs, vitals and charts reviewed - afebrile; no leukocytosis WCx: Staph aureus Tib-fib x-rays reviewed - no signs of soft tissue emphysema Wound cleaned with saline and dressing applied using xeroform, ABD, DSD Continue IV abx as per ID - [email or web address] Thank you for the podiatry consult and allowing to take part in patient care Podiatry to follow patient while in-house - Date & Time Date: 12/28/17 Time: 05:30
[2017-12-29 01:26] VITALS: O2SAT 98
--- NOTE | 2017-12-29 05:34 | CP.PCM.PN ---
Subjective - Date & Time of Evaluation Date of Evaluation: 12/29/17 Time of Evaluation: 05:32 - Subjective Subjective: Patient was seen at bedside. She complained of right knee pain, mild pain. Has no other complaints. Medical record was reviewed. This 72 year old woman was admitted with Has PMH of HTN,diabetes mellitus, depression, obesity, anxiety, renal insufficiency, OA, gait dysfunction, bilateral knee pain, lumbar disc disease,D&C, colonoscopy. Objective - Vital Signs/Intake and Output Vital Signs (last 24 hours): Temp Pulse Resp BP Pulse Ox 98.9 F 70 20 133/59 L 98 12/29/17 00:01 12/29/17 02:00 12/29/17 00:01 12/29/17 00:01 12/29/17 00:01 Intake and Output: 12/28/17 12/29/17 18:59 06:59 Intake Total 360 Output Total 900 Balance -540 - Medications Medications: Current Medications Aspirin (Ecotrin) 81 mg PO DAILY [facility] Last Admin: 12/28/17 09:52 Dose: 81 mg Furosemide (Lasix) 40 mg IVP DAILY [facility] Last Admin: 12/28/17 09:52 Dose: 40 mg Glimepiride (Amaryl) 4 mg PO HS [facility] Last Admin: 12/28/17 22:51 Dose: 4 mg Sodium Chloride (Sodium Chloride 0.45%) 1,000 mls @ 40 mls/hr IV .Q24H [facility] Last Admin: 12/28/17 10:12 Dose: 40 mls/hr Linezolid (Zyvox 600mg/300ml D5w) 600 mg in 300 mls @ 200 mls/hr IVPB Q12 [facility]ONAH PRN Reason: Protocol Stop: 01/04/18 10:01 Last Admin: 12/28/17 22:50 Dose: 200 mls/hr Insulin Human Regular (Humulin R Med) 0 units SC ACHS [facility]ONAH PRN Reason: Protocol Last Admin: 12/28/17 22:51 Dose: Not Given Lorazepam (Ativan) 0.5 mg PO BID [facility] PRN Reason: Protocol Last Admin: 12/28/17 23:07 Dose: 0.5 mg Losartan Potassium (Cozaar) 50 mg PO DAILY [facility] Last Admin: 12/28/17 09:52 Dose: 50 mg Metformin HCl (Glucophage) 500 mg PO DAILY [facility] Last Admin: 12/28/17 09:52 Dose: 500 mg Mupirocin (Bactroban Ointment) 0 gm TOP BID [facility] Stop: 12/31/17 18:01 Last Admin: 12/28/17 18:22 Dose: 1 g Nystatin (Nystop Topical Powder) 1 gm TOP BID [facility] Last Admin: 12/28/17 20:09 Dose: 1 g Pioglitazone HCl (Actos) 30 mg PO DAILY [facility] Last Admin: 12/28/17 09:52 Dose: 30 mg - Labs Labs: 12/28/17 05:45 12/28/17 05:45 PT 10.8 SECONDS (9.4-12.5) 12/26/17 12:08 INR 0.94 (0.93-1.08) 12/26/17 12:08 APTT 30.5 Seconds (25.1-36.5) 12/26/17 12:08 - Constitutional Appears: Well, No Acute Distress - Head Exam Head Exam: ATRAUMATIC, NORMAL INSPECTION, NORMOCEPHALIC - Eye Exam Eye Exam: Normal appearance - ENT Exam ENT Exam: Normal External Ear Exam - Neck Exam Neck Exam: Normal Inspection - Respiratory Exam Respiratory Exam: NORMAL BREATHING PATTERN - Cardiovascular Exam Cardiovascular Exam: absent: JVD - GI/Abdominal Exam GI & Abdominal Exam: absent: Distended - Rectal Exam Rectal Exam: Deferred - Exam Additional comments: Deferred. - Extremities Exam Additional comments: Right knee - No swelling. - No tenderness. Right distal leg has dressing wrapped which is clean and dry. - Back Exam Back Exam: NORMAL INSPECTION - Neurological Exam Neurological Exam: Alert, Awake, Oriented x3 - Psychiatric Exam Psychiatric exam: Normal Affect, Normal Mood - Skin Skin Exam: Normal Color Assessment and Plan - Assessment and Plan (Free Text) Assessment: Right knee pain. HTN. DM. Gait dysfunction. Lumbar disc disease. Plan: Tylenol 975 mg PO x 1. Continue management as per PMD.
[2017-12-29 06:21] LABS: HEMOGLOBIN 9.9 g/dL (12.0-16.0); MEAN CELL VOLUME 89.6 fl (80.0-105.0); MEAN CORPUSCULAR HEMOGLOBIN 29.3 pg (25.0-35.0); MEAN CORPUSCULAR HGB CONC 32.7 g/dl (31.0-37.0); MEAN PLATELET VOLUME 10.2 fl (7.0-11.0); RBC 3.38 10^6/uL (3.5-6.1); RED CELL DISTRIBUTION WIDTH 14.9 % (11.5-14.5); WHITE BLOOD COUNT 9.1 10^3/ul (4.5-11.0)
[2017-12-29 07:46] LABS: ALB/GLOB RATIO 1.2 (1.1-1.8); ALBUMIN 3.7 g/dL (3.0-4.8); CALCIUM 9.3 mg/dL (8.4-10.5)
[2017-12-29] MEDS: Insulin Reg-MEDIUM-Coverage SC SCH ×2 (08:30→13:48)
[2017-12-29] MEDS: Linezolid 600 mg in D5W 300 ml 600 MG/300 ML BAG IVPB SCH (09:32)
[2017-12-29] MEDS: Nystatin 100,000 Units/gm Topical Pow(15 gm) TOP SCH (09:44)
--- NOTE | 2017-12-29 10:52 | PN ---
DATE: 12/29/2017 SUBJECTIVE: The patient is without symptoms. OBJECTIVE: VITAL SIGNS: Blood pressure is 144/65, heart rate is in the 70s. NECK: Negative JVD. LUNGS: Without rales. HEART: S1, S2. EXTREMITIES: Bandages are still on for her cellulitis. DATA: Hemoglobin is 9.9, white count is 9.1, BUN and creatinine is 29 and 1.8. Echocardiogram shows normal LV function with an EF of 69%. There is no pulmonary hypertension noted. IMPRESSION: 1. Cellulitis of the lower extremities. 2. Cellulitis of the extremities. 3. History of pulmonary hypertension, which is not documented in the present echo. 4. Renal insufficiency. 5. Diabetes mellitus. 6. Hypertension. Given these findings, the patient's cardiac status is stable. We will discontinue Telemetry today. Given her risk factors, we will consider an outpatient stress test once her infection is completely resolved. Sawyer Velazco MD
[2017-12-29] MEDS: Sodium Chloride 0.45% 1,000 ML IV SCH (11:14)
--- NOTE | 2017-12-29 12:50 | CP.PCM.PN ---
Subjective - Date & Time of Evaluation Date of Evaluation: 12/29/17 Time of Evaluation: 10:00 - Subjective Subjective: Comfortable, less pain in the legs, no fevers, no diarrhea. Objective - Vital Signs/Intake and Output Vital Signs (last 24 hours): Temp Pulse Resp BP Pulse Ox 98.4 F 71 20 144/55 L 98 12/29/17 06:00 12/29/17 06:00 12/29/17 06:00 12/29/17 06:00 12/29/17 06:00 Intake and Output: 12/29/17 12/29/17 06:59 18:59 Intake Total 600 Balance 600 - Medications Medications: Current Medications Aspirin (Ecotrin) 81 mg PO DAILY [facility] Last Admin: 12/28/17 09:52 Dose: 81 mg Furosemide (Lasix) 40 mg IVP DAILY [facility] Last Admin: 12/28/17 09:52 Dose: 40 mg Glimepiride (Amaryl) 4 mg PO HS [facility] Last Admin: 12/28/17 22:51 Dose: 4 mg Sodium Chloride (Sodium Chloride 0.45%) 1,000 mls @ 40 mls/hr IV .Q24H [facility] Last Admin: 12/28/17 10:12 Dose: 40 mls/hr Linezolid (Zyvox 600mg/300ml D5w) 600 mg in 300 mls @ 200 mls/hr IVPB Q12 [facility] PRN Reason: Protocol Stop: 01/04/18 10:01 Last Admin: 12/28/17 22:50 Dose: 200 mls/hr Insulin Human Regular (Humulin R Med) 0 units SC ACHS [facility] PRN Reason: Protocol Last Admin: 12/29/17 08:30 Dose: Not Given Lorazepam (Ativan) 0.5 mg PO BID [facility] PRN Reason: Protocol Last Admin: 12/28/17 23:07 Dose: 0.5 mg Losartan Potassium (Cozaar) 50 mg PO DAILY [facility] Last Admin: 12/28/17 09:52 Dose: 50 mg Metformin HCl (Glucophage) 500 mg PO DAILY [facility] Last Admin: 12/28/17 09:52 Dose: 500 mg Mupirocin (Bactroban Ointment) 0 gm TOP BID [facility] Stop: 12/31/17 18:01 Last Admin: 12/28/17 18:22 Dose: 1 g Nystatin (Nystop Topical Powder) 1 gm TOP BID [facility] Last Admin: 12/28/17 20:09 Dose: 1 g Pioglitazone HCl (Actos) 30 mg PO DAILY [facility] Last Admin: 12/28/17 09:52 Dose: 30 mg - Labs Labs: 12/29/17 05:30 12/29/17 05:30 PT 10.8 SECONDS (9.4-12.5) 12/26/17 12:08 INR 0.94 (0.93-1.08) 12/26/17 12:08 APTT 30.5 Seconds (25.1-36.5) 12/26/17 12:08 - Constitutional Appears: Chronically Ill - Head Exam Head Exam: NORMAL INSPECTION - Neck Exam Neck Exam: absent: Meningismus - Respiratory Exam Respiratory Exam: Decreased Breath Sounds - Cardiovascular Exam Cardiovascular Exam: +S1, +S2 - GI/Abdominal Exam GI & Abdominal Exam: Soft. absent: Tenderness - Extremities Exam Additional comments: both legs with dressings in place Assessment and Plan - Assessment and Plan (Free Text) Plan: Assessment Consider right lower extremity skin and skin structure infection / cellulitis, growing Staph aureus obesity with BMI 37 HTN DM chronic renal failure Plan continue Zyvox day 2 to complete 7-10 days pending sensitivities of the Staph aureus in the wound cx; continue topical Mupirocin will continue to monitor clinically discussed with Dr. Adler
[2017-12-29 14:11] VITALS: BP 157/70; PULSE 73; RESP 18; TEMP 98.2
--- NOTE | 2017-12-30 05:54 | DS ---
DISPOSITION: To the Transitional Care Unit. SUBJECTIVE: She is doing okay. She is comfortable. She is crying a little bit. She does not want to be in the hospital. PHYSICAL EXAMINATION: VITAL SIGNS: She has a 98.4 temperature, 71 pulse, 144/55 blood pressure, 20 respiratory rate, 98% O2 sat on room air. HEENT: Head is atraumatic, normocephalic. HEART: Regular rate. LUNGS: Clear to auscultation. ABDOMEN: Soft, obese, nontender. EXTREMITIES: Wrapped. She has got right leg cellulitis and ulcers. She is on Actos, Amaryl, Ativan, Bactroban cream, Cozaar, Ecotrin, Glucophage, Lasix, nystatin, IV fluids, and Zyvox IV. LABORATORY DATA: She has a 9.1 white count, 9.9 hemoglobin, 30.3 hematocrit with 395 platelets. She has a 142 sodium, potassium 3.6, BUN 29, creatinine 1.8 which is doing better, GFR is 28, sugar is 130, calcium is 9.3. Total bilirubin is 0.3, AST is 22, ALT is 25, alkaline phosphatase 46, total protein 6.8. She has Staph aureus on Gram stain. Medicines were adjusted. She is being seen by Cardiology, Infectious Disease, and Podiatry. She has right leg cellulitis, gram-positive cocci. She has hypertension, diabetes, chronic renal failure, swelling, cellulitis, history of pulmonary retention, and renal insufficiency. So, for the most part, she is doing fairly well. Continue with wound care of the cellulitis and ulcers, on IV antibiotics and we will get her to TCU today for physical therapy treatment and hopefully, she will do very well there, then go home. Lamont Adler DO MTDShara
== END 2017-12-29 15:54 | DRG 603 ==
LOC: ED 10:35 → ERH 12:09 → 2RNO 14:12
PROVIDERS: ADMIT Family Medicine; ATTEND Family Medicine
DX: L03.115 Cellulitis of right lower limb (principal); L97.319 Non-pressure chronic ulcer of right ankle with unspecified severity; I13.0 Hypertensive heart and chronic kidney disease with heart failure and stage 1 through stage 4 chronic kidney disease, or unspecified chronic kidney disease; I50.9 Heart failure, unspecified; N18.9 Chronic kidney disease, unspecified; E11.622 Type 2 diabetes mellitus with other skin ulcer; B95.61 Methicillin susceptible Staphylococcus aureus infection as the cause of diseases classified elsewhere; M51.9 Unspecified thoracic, thoracolumbar and lumbosacral intervertebral disc disorder; M17.0 Bilateral primary osteoarthritis of knee; F41.9 Anxiety disorder, unspecified; I08.1 Rheumatic disorders of both mitral and tricuspid valves; I27.20 Pulmonary hypertension, unspecified; F32.9 Major depressive disorder, single episode, unspecified; E11.22 Type 2 diabetes mellitus with diabetic chronic kidney disease; R26.9 Unspecified abnormalities of gait and mobility; E66.9 Obesity, unspecified; Z68.37 Body mass index [BMI] 37.0-37.9, adult; Z91.19 Patient's noncompliance with other medical treatment and regimen; Z79.84 Long term (current) use of oral hypoglycemic drugs

== ENCOUNTER 2017-12-29 15:08 | Inpatient (IN) | payer MEDICARE, OTHER ==
--- NOTE | 2017-12-29 16:13 | CP.PCM.CON ---
<Iman Wills - Last Filed: 12/29/17 16:10> History of Present Illness - History of Present Illness History of Present Illness: Podiatry Consult Note: Dr. Mack/Dr. German 72 year old female patient with HTN, depression, DM, obesity, anxiety, renal insufficiency, osteoarthritis was seen and evaluated in TCU with attending Dr. German for bilateral leg superficial blisters. Patient denies having any pain to the legs, but admits to mild itchiness at the site of the blisters. Denies F/ N/V/C/SOB/CP/Headache/diarrhea. PMHx: HTN, depression, DM, obesity, anxiety, renal insufficiency, osteoarthritis PSHx: D&C, colonoscopy Allergies: N.K.D.A Review of Systems - Review of Systems All systems: reviewed and no additional remarkable complaints except (per HPI) Past Patient History - Infectious Disease Hx of Infectious Diseases: None - Tetanus Immunizations Tetanus Immunization: Unknown - Past Social History Smoking Status: Never Smoked - CARDIAC Hx Hypertension: Yes - PULMONARY Hx Respiratory Disorders: Yes Hx Bronchitis: Yes - NEUROLOGICAL Hx Paralysis: No - HEENT Hx HEENT Problems: Yes (WEARS RX GLASSES) - ENDOCRINE/METABOLIC Hx Diabetes Mellitus Type 2: Yes - HEMATOLOGICAL/ONCOLOGICAL Hx Blood Transfusions: No - INTEGUMENTARY Hx Dermatological Problems: Yes Other/Comment: 12-26-17 BILATERAL LEG CELLULITIS,MASD UNDER THE BREAST FOLD, STOMACH FOLD, GROIN AREA HAS IASD. - MUSCULOSKELETAL/RHEUMATOLOGICAL Hx Arthritis: Yes - PSYCHIATRIC Hx Emotional Abuse: No Hx Physical Abuse: No Hx Substance Use: No - SURGICAL HISTORY Hx Surgeries: Yes (D&C-1994 ,COLONOSCOPY MANY YRS AGO) - ANESTHESIA Hx Anesthesia: No Hx Anesthesia Reactions: No Hx Malignant Hyperthermia: No Meds Allergies/Adverse Reactions: Allergies Allergy/AdvReac Type Severity Reaction Status Date / Time No Known Allergies Allergy Verified 12/26/17 12:53 - Medications Medications: Current Medications Aspirin (Ecotrin) 81 mg PO 0800 [facility] PRN Reason: Protocol Glimepiride (Amaryl) 4 mg PO HS [facility] PRN Reason: Protocol Lorazepam (Ativan) 0.5 mg PO BID [facility] PRN Reason: Protocol Metformin HCl (Glucophage) 500 mg PO DAILY [facility] PRN Reason: Protocol Pioglitazone HCl (Actos) 30 mg PO DAILY [facility] PRN Reason: Protocol Physical Exam - Constitutional Appears: Well, Non-toxic, No Acute Distress - Extremities Exam Additional comments: Bilateral LE exam VASC: DP/PT pulses are palpable 1/4. CFT < 3 sec to all digits. Temp gradient warm to cool from proximal to distal. 1+ pitting edema noted on the distal aspect of the medial leg and the dorsum of the foot B/L DERM: superficial epidermal lysis with exposed dermal layer due to de-roofed bullae on the saul lateral right leg as well as on the left leg, the base is fully granular with no fibrosis, no tunneling, no undermining, active serous fluid drainage noted, no malodor, periwound appears to have erythema which does not extend to the knee joint but does extend to the dorsal foot distally. ails are elongated, dystrophic, discolored, no interdigital maceration NEURO: Protective sensation mildly intact ORTHO: MMT: 5/5 in all 4 direction at the ankle joint. No pain on palpation of the blistered site. Nails tender to palpation x10 - Neurological Exam Neurological exam: Alert, Oriented x3 - Psychiatric Exam Psychiatric exam: Normal Affect, Normal Mood Assessment & Plan - Assessment and Plan (Free Text) Assessment: 72 year old female patient with cellulitis secondary to de-roofed bullae bilaterally Plan: Patient seen and evaluated with attending Dr. German Labs, vitals and charts reviewed - afebrile; no leukocytosis WCx: Staph aureus Tib-fib x-rays reviewed - no signs of soft tissue emphysema Wounds cleaned with saline and dressing applied using xeroform, ABD, DSD Continue IV abx as per ID - zyvox Aseptic debridement of toenails x10 with sterile nippers Pt tolerated procedure without incident Podiatry to follow patient while in-house <Shahzad German - Last Filed: 01/01/18 11:20> Meds - Medications Medications: Current Medications Aspirin (Ecotrin) 81 mg PO 0800 [facility] PRN Reason: Protocol Last Admin: 01/01/18 08:28 Dose: Not Given Furosemide (Lasix) 40 mg PO DAILY [facility] Last Admin: 01/01/18 09:51 Dose: 40 mg Glimepiride (Amaryl) 4 mg PO HS [facility] PRN Reason: Protocol Last Admin: 12/31/17 22:29 Dose: 4 mg Insulin Human Regular (Humulin R Med) 0 units SC ACHS [facility] PRN Reason: Protocol Last Admin: 01/01/18 06:37 Dose: Not Given Linezolid (Zyvox) 600 mg PO BID [facility] PRN Reason: Protocol Last Admin: 01/01/18 09:51 Dose: 600 mg Lorazepam (Ativan) 0.5 mg PO 1000,2200 [facility] PRN Reason: Protocol Last Admin: 01/01/18 09:49 Dose: 0.5 mg Losartan Potassium (Cozaar) 50 mg PO DAILY [facility] PRN Reason: Protocol Last Admin: 01/01/18 09:50 Dose: 50 mg Metformin HCl (Glucophage) 500 mg PO DAILY [facility] PRN Reason: Protocol Last Admin: 01/01/18 09:50 Dose: 500 mg Mupirocin (Bactroban Ointment) 1 gm TOP BID [facility] PRN Reason: Protocol Last Admin: 01/01/18 09:50 Dose: 1 applic Nystatin (Nystop Topical Powder) 1 gm TOP BID [facility] PRN Reason: Protocol Last Admin: 01/01/18 09:50 Dose: 1 applic Ondansetron HCl (Zofran Tab) 4 mg PO Q6 PRN PRN Reason: Nausea/Vomiting Pioglitazone HCl (Actos) 30 mg PO DAILY [facility] PRN Reason: Protocol Last Admin: 01/01/18 09:49 Dose: 30 mg Results - Vital Signs Recent Vital Signs: Last Vital Signs Temp 98.3 F 12/31/17 16:58 Pulse 68 12/31/17 16:58 Resp 18 12/31/17 16:58 BP 136/69 01/01/18 09:51 Pulse Ox 98 12/31/17 16:58 - Labs Result Diagrams: 01/01/18 06:30 01/01/18 06:30 Labs: Laboratory Results - last 24 hr 12/31/17 12/31/17 12/31/17 11:21 16:42 21:21 WBC RBC Hgb Hct MCV MCH MCHC RDW Plt Count MPV Sodium Potassium Chloride Carbon Dioxide Anion Gap BUN Creatinine Est GFR ( Amer) Est GFR (Non-Af Amer) POC Glucose (mg/dL) 146 H 160 H 142 H Random Glucose Calcium Total Bilirubin AST ALT Alkaline Phosphatase Total Protein Albumin Globulin Albumin/Globulin Ratio 01/01/18 01/01/18 01/01/18 05:16 06:30 06:30 WBC 7.8 RBC 3.46 L Hgb 9.9 L Hct 30.9 L MCV 89.3 MCH 28.6 MCHC 32.0 RDW 15.2 H Plt Count 381 MPV 10.0 Sodium 144 Potassium 3.9 Chloride 106 Carbon Dioxide 26 Anion Gap 16 BUN 36 H Creatinine 2.5 H Est GFR ( Amer) 23 Est GFR (Non-Af Amer) 19 POC Glucose (mg/dL) 73 Random Glucose 112 H Calcium 9.8 Total Bilirubin 0.3 AST 22 ALT 29 Alkaline Phosphatase 46 Total Protein 6.7 Albumin 3.8 Globulin 2.9 Albumin/Globulin Ratio 1.3 01/01/18 11:08 WBC RBC Hgb Hct MCV MCH MCHC RDW Plt Count MPV Sodium Potassium Chloride Carbon Dioxide Anion Gap BUN Creatinine Est GFR ( Amer) Est GFR (Non-Af Amer) POC Glucose (mg/dL) 198 H Random Glucose Calcium Total Bilirubin AST ALT Alkaline Phosphatase Total Protein Albumin Globulin Albumin/Globulin Ratio Attending/Attestation - Attestation I have personally seen and examined this patient.: Yes I have fully participated in the care of the patient.: Yes I have reviewed all pertinent clinical information: Yes
[2017-12-29] MEDS ORDERED: Sodium Chloride 0.45% 1,000 ML IV SCH (16:30)
[2017-12-29] MEDS: Insulin Reg-MEDIUM-Coverage SC SCH ×2 (17:42→22:02)
[2017-12-29] MEDS ORDERED: Nystatin 100,000 Units/gm Cream(15 gm) TOP SCH (18:00)
[2017-12-29] MEDS: Linezolid 600 mg in D5W 300 ml 600 MG/300 ML BAG IVPB SCH (21:50)
[2017-12-30] MEDS: Insulin Reg-MEDIUM-Coverage SC SCH ×4 (06:38→22:19)
[2017-12-30] MEDS: Nystatin 100,000 Units/gm Topical Pow(15 gm) TOP SCH ×3 (09:37→17:16)
[2017-12-30] MEDS: Linezolid 600 mg in D5W 300 ml 600 MG/300 ML BAG IVPB SCH (10:31)
--- NOTE | 2017-12-30 15:06 | CP.PCM.PN ---
<Iman Wills - Last Filed: 12/30/17 15:03> Subjective - Date & Time of Evaluation Date of Evaluation: 12/30/17 Time of Evaluation: 15:03 - Subjective Subjective: Podiatry Consult Note: Dr. Mack/Dr. German 72 year old female patient seen and evaluated in TCU with attending Dr. Mack for bilateral leg superficial blisters. Patient denies having any pain to the legs today. States dressings have remained clean, dry and intact. Denies F/N/V/C /SOB/CP/EDGAR/diarrhea. Objective - Vital Signs/Intake and Output Vital Signs (last 24 hours): Temp Pulse Resp BP Pulse Ox 98.2 F 75 20 150/64 100 12/30/17 10:00 12/30/17 10:00 12/30/17 10:00 12/30/17 10:00 12/30/17 10:00 - Medications Medications: Current Medications Aspirin (Ecotrin) 81 mg PO 0800 [facility] PRN Reason: Protocol Last Admin: 12/30/17 07:48 Dose: 81 mg Furosemide (Lasix) 40 mg IVP DAILY [facility] PRN Reason: Protocol Last Admin: 12/30/17 09:55 Dose: 40 mg Glimepiride (Amaryl) 4 mg PO HS [facility] PRN Reason: Protocol Last Admin: 12/29/17 21:50 Dose: 4 mg Linezolid (Zyvox 600mg/300ml D5w) 600 mg in 300 mls @ 200 mls/hr IVPB Q12 [facility] PRN Reason: Protocol Stop: 01/05/18 22:01 Last Admin: 12/30/17 10:31 Dose: 200 mls/hr Insulin Human Regular (Humulin R Med) 0 units SC ACHS [facility]ONAH PRN Reason: Protocol Last Admin: 12/30/17 12:21 Dose: 3 units Lorazepam (Ativan) 0.5 mg PO BID [facility] PRN Reason: Protocol Last Admin: 12/30/17 09:46 Dose: 0.5 mg Losartan Potassium (Cozaar) 50 mg PO DAILY [facility] PRN Reason: Protocol Last Admin: 12/30/17 09:54 Dose: 50 mg Metformin HCl (Glucophage) 500 mg PO DAILY [facility] PRN Reason: Protocol Last Admin: 12/30/17 09:55 Dose: 500 mg Mupirocin (Bactroban Ointment) 1 gm TOP BID [facility] PRN Reason: Protocol Last Admin: 12/30/17 09:54 Dose: 1 applic Nystatin (Nystop Topical Powder) 1 gm TOP BID [facility] PRN Reason: Protocol Last Admin: 12/30/17 10:31 Dose: Not Given Ondansetron HCl (Zofran Inj) 4 mg IVP Q6H PRN; Protocol PRN Reason: Nausea/Vomiting Pioglitazone HCl (Actos) 30 mg PO DAILY [facility] PRN Reason: Protocol Last Admin: 12/30/17 09:38 Dose: 30 mg - Constitutional Appears: Well, Non-toxic, No Acute Distress - Extremities Exam Additional comments: Bilateral LE focused exam: VASC: DP/PT pulses are palpable 1/4. CFT < 3 sec to all digits. Temp gradient warm to cool from proximal to distal. 1+ pitting edema noted on the distal aspect of the medial leg and the dorsum of the foot B/L DERM: Superficial epidermal lysis with exposed dermal layer due to de-roofed bullae on the saul lateral right leg as well as on the left leg. Bases is fully granular with no fibrosis, no tunneling, no undermining, active serous fluid drainage noted, no malodor, no erythema. L anterior leg blister site noted to be epithelializing well and almost fully healed. Nails are dystrophic, discolored x10. No interdigital maceration NEURO: Protective sensation mildly intact ORTHO: MMT: 5/5 in all 4 directions at the ankle and STJ joints. No pain on palpation of the blistered sites. - Neurological Exam Neurological Exam: Alert, Awake, Oriented x3 - Psychiatric Exam Psychiatric exam: Normal Affect, Normal Mood Assessment and Plan - Assessment and Plan (Free Text) Assessment: 72 year old female patient with 1) bilateral superficial leg blisters and 2) cellulitis, resolved Plan: Patient seen and evaluated with attending Dr. Mack Labs, vitals and charts reviewed - afebrile; no leukocytosis Wound cx of R leg (+) for growth of Staph aureus Tib-fib x-rays reviewed - no signs of soft tissue emphysema Wounds cleaned with saline Dressing applied to RLE using xeroform, ABD, DSD L anterior leg superficial ulceration dressed with Optifoam bandage Continue IV abx as per ID - zyvox Podiatry to follow patient while in-house <Nelly Mack - Last Filed: 01/03/18 17:45> Objective - Vital Signs/Intake and Output Vital Signs (last 24 hours): Temp Pulse Resp BP Pulse Ox 98.2 F 66 18 136/69 98 01/01/18 10:00 01/01/18 10:00 01/01/18 10:00 01/01/18 10:00 01/01/18 10:00 - Labs Labs: 01/01/18 06:30 01/01/18 06:30 Attending/Attestation - Attestation I have personally seen and examined this patient.: Yes I have fully participated in the care of the patient.: Yes I have reviewed all pertinent clinical information, including history, physical exam and plan: Yes
--- NOTE | 2017-12-30 16:51 | CP.PCM.CON ---
History of Present Illness - History of Present Illness History of Present Illness: 72 year old female with PMH of obesity with BMI 37, HTN, DM initially came in to [facility] complaining of right leg blister with weeping and leg swelling and is being treated for Staph aureus cellulitis of the right leg. She has been doing well but is transferred to [facility] for continued medical therapy and physical therapy. Infectious Diseases consult is requested to continue her antibiotics. She is comfortable, less pain in the legs, no fever or chills, no nausea or vomiting, no chest pain, no SOB, no headache or dizziness, no sore throat, no rhinorrhea, no abdominal pain, no diarrhea, no dysuria. Review of Systems - Review of Systems All systems: reviewed and no additional remarkable complaints except (as per HPI ) Past Patient History - Infectious Disease Hx of Infectious Diseases: None - Tetanus Immunizations Tetanus Immunization: Unknown - Past Social History Smoking Status: Never Smoked - CARDIAC Hx Congestive Heart Failure: Yes Hx Hypertension: Yes - PULMONARY Hx Bronchitis: Yes - NEUROLOGICAL Hx Paralysis: No - HEENT Hx HEENT Problems: Yes (WEARS RX GLASSES) - ENDOCRINE/METABOLIC Hx Diabetes Mellitus Type 2: Yes - HEMATOLOGICAL/ONCOLOGICAL Hx Blood Transfusions: No - INTEGUMENTARY Hx Dermatological Problems: Yes Other/Comment: 12-26-17 BILATERAL LEG CELLULITIS,MASD UNDER THE BREAST FOLD, STOMACH FOLD, GROIN AREA HAS IASD. - MUSCULOSKELETAL/RHEUMATOLOGICAL Hx Falls: Yes - PSYCHIATRIC Hx Emotional Abuse: No Hx Physical Abuse: No Hx Substance Use: No - SURGICAL HISTORY Hx Surgeries: Yes (D&C-1994 ,COLONOSCOPY MANY YRS AGO) - ANESTHESIA Hx Anesthesia: No Hx Anesthesia Reactions: No Hx Malignant Hyperthermia: No Meds Allergies/Adverse Reactions: Allergies Allergy/AdvReac Type Severity Reaction Status Date / Time No Known Allergies Allergy Verified 12/26/17 12:53 - Medications Medications: Current Medications Aspirin (Ecotrin) 81 mg PO 0800 [facility] PRN Reason: Protocol Furosemide (Lasix) 40 mg IVP DAILY [facility] PRN Reason: Protocol Glimepiride (Amaryl) 4 mg PO HS [facility] PRN Reason: Protocol Linezolid (Zyvox 600mg/300ml D5w) 600 mg in 300 mls @ 200 mls/hr IVPB Q12 [facility]ONAH PRN Reason: Protocol Stop: 01/05/18 22:01 Sodium Chloride (Sodium Chloride 0.45%) 1,000 mls @ 40 mls/hr IV .Q24H [facility]ONAH PRN Reason: Protocol Insulin Human Regular (Humulin R Med) 0 units SC ACHS JONAH PRN Reason: Protocol Lorazepam (Ativan) 0.5 mg PO BID [facility]ONAH PRN Reason: Protocol Losartan Potassium (Cozaar) 50 mg PO DAILY [facility] PRN Reason: Protocol Metformin HCl (Glucophage) 500 mg PO DAILY [facility] PRN Reason: Protocol Mupirocin (Bactroban Ointment) 1 gm TOP BID [facility]ON[facility] PRN Reason: Protocol Nystatin (Mycostatin Cream) 1 ea TOP BID [facility]ONAH PRN Reason: Protocol Ondansetron HCl (Zofran Inj) 4 mg IVP Q6H PRN; Protocol PRN Reason: Nausea/Vomiting Pioglitazone HCl (Actos) 30 mg PO DAILY [facility] PRN Reason: Protocol Physical Exam - Constitutional Appears: Chronically Ill - Head Exam Head Exam: NORMAL INSPECTION - ENT Exam ENT Exam: Mucous Membranes Moist - Neck Exam Neck exam: Negative for: Meningismus - Respiratory Exam Respiratory Exam: Decreased Breath Sounds - Cardiovascular Exam Cardiovascular Exam: +S1, +S2 - GI/Abdominal Exam GI & Abdominal Exam: Soft. absent: Tenderness - Extremities Exam Additional comments: both legs with dressings in place Results - Vital Signs Recent Vital Signs: Last Vital Signs Temp 98.0 F 12/29/17 16:30 Pulse 81 12/29/17 16:30 Resp 19 12/29/17 16:30 BP 124/70 12/29/17 16:30 Pulse Ox Assessment & Plan - Assessment and Plan (Free Text) Plan: Assessment Consider right lower extremity skin and skin structure infection / cellulitis, growing Staph aureus obesity with BMI 37 HTN DM chronic renal failure Plan continue Zyvox day 3 to complete 7-10 days; continue topical Mupirocin will continue to monitor clinically discussed with Dr. Adler
[2017-12-31] MEDS: Insulin Reg-MEDIUM-Coverage SC SCH ×4 (06:32→22:29)
[2017-12-31 07:06] LABS: MEAN CORPUSCULAR HEMOGLOBIN 28.6 pg (25.0-35.0); MEAN CORPUSCULAR HGB CONC 31.7 g/dl (31.0-37.0); MEAN PLATELET VOLUME 10.2 fl (7.0-11.0); RBC 3.5 10^6/uL (3.5-6.1); RED CELL DISTRIBUTION WIDTH 15.2 % (11.5-14.5); WHITE BLOOD COUNT 9.1 10^3/ul (4.5-11.0)
--- NOTE | 2017-12-31 07:35 | HP ---
HISTORY OF PRESENT ILLNESS: I saw Nelly now in the Transitional Care Unit. She is sitting up in bed. She is eating her breakfast. She walks very slowly. She has been diuresed with IV Lasix. She has failed outpatient treatment for leg ulcers with antibiotics and cream, and she got worse with yellow discharge coming from the ulcers and was sent to the hospital. She was put in for IV antibiotics and Lasix IV because the p.o. Lasix up to 3 times in the outpatient and the legs are still swollen. PAST MEDICAL HISTORY: Hypertension, depression, diabetes, obesity, anxiety, renal insufficiency, lumbar disk disease, bilateral knee pain, osteoarthritis, gait dysfunction, and CHF. ALLERGIES: NO KNOWN DRUG ALLERGIES. PAST SURGICAL HISTORY: D and C and colonoscopy. Last colonoscopy was in 03/2016. FAMILY HISTORY: Father with diabetes and heart disease. SOCIAL HISTORY: No smoking. No drinking. No drugs. Right leg has now ulcers with cellulitis with pus coming out of it. They are improving. She is very emotional. She has oosing leg. She is worried. She is doing little bit better now in the TCU. She is going to try walk before she can go home. No acute vision or hearing changes. No ringing in the ears. No sore throat. No chest pains or palpitations. Difficult for her to walk. The swelling of leg is much better. No shortness of breath. No cough. No nausea or vomiting. No diarrhea or constipation. She has incontinence of urine. Poor gait. No headaches. Very emotional. Both legs were swollen, but much better now right leg still got blisters with oozing, but not as bad. PHYSICAL EXAMINATION: VITAL SIGNS: Temperature 98, 81 pulse, 124/70 blood pressure, 19 respiratory rate. HEENT: Head: Atraumatic, normocephalic. Extraocular muscles are intact. Throat is moist. NECK: Supple. HEART: Regular rate. LUNGS: Decreased breath sounds, but clear to auscultation. ABDOMEN: Soft, nontender. Positive bowel sounds. Morbidly obese. EXTREMITIES: Trace edema, much better. The right leg is still has some ulcers there, less oozing, less red, improving with the antibiotics. NEUROLOGIC: She is alert and oriented x3. Cranial nerves II through XII grossly intact. GCS is 15. LABORATORY DATA: There were no labs ordered on the TCU with the last blood sugar was 157. She is currently on metformin, insulin, Lasix IV, nystatin powder for fungal rash, IV fluids, Zofran, and Zyvox. We will decrease the IV fluids, continue with the IV antibiotics, physical therapy. She will be on IV antibiotics for 3 to 4 more days. We will check her labs tomorrow. Patient is here for failed outpatient treatment for cellulitis of the right leg and ulcers, and CHF with edema. Lamont Adler DO MTDShara
[2017-12-31 07:40] LABS: ALB/GLOB RATIO 1.3 (1.1-1.8); ALBUMIN 3.7 g/dL (3.0-4.8); CALCIUM 9.5 mg/dL (8.4-10.5)
[2017-12-31] MEDS: Nystatin 100,000 Units/gm Topical Pow(15 gm) TOP SCH ×2 (10:22→17:44)
--- NOTE | 2017-12-31 10:35 | CP.PCM.PN ---
<JohannIman - Last Filed: 12/31/17 10:32> Subjective - Date & Time of Evaluation Date of Evaluation: 12/31/17 Time of Evaluation: 10:32 - Subjective Subjective: Podiatry Consult Note: Dr. Mack/Dr. German 72 year old female patient seen and evaluated in TCU for bilateral leg superficial blisters, right worse than left. Patient denies having any pain to the legs today. She states she just finished working with physical therapy on strengthening exercises, and plans to walk with them later. Says she slept til 3am and then was unable to fall back asleep, but feels alright. States dressings have remained clean, dry and intact. Denies F/N/V/C/SOB/CP/EDGAR/ diarrhea. Objective - Vital Signs/Intake and Output Vital Signs (last 24 hours): Temp Pulse Resp BP Pulse Ox 98.1 F 70 20 130/55 L 98 12/30/17 16:00 12/30/17 16:00 12/30/17 16:00 12/31/17 10:16 12/30/17 16:00 - Medications Medications: Current Medications Aspirin (Ecotrin) 81 mg PO 0800 JONAH PRN Reason: Protocol Last Admin: 12/31/17 08:22 Dose: 81 mg Furosemide (Lasix) 40 mg PO DAILY JONAH Last Admin: 12/31/17 10:16 Dose: 40 mg Glimepiride (Amaryl) 4 mg PO HS JONAH PRN Reason: Protocol Last Admin: 12/30/17 21:22 Dose: 4 mg Insulin Human Regular (Humulin R Med) 0 units SC ACHS JONAH PRN Reason: Protocol Last Admin: 12/31/17 06:32 Dose: Not Given Linezolid (Zyvox) 600 mg PO BID JONAH PRN Reason: Protocol Last Admin: 12/31/17 10:16 Dose: 600 mg Lorazepam (Ativan) 0.5 mg PO 1000,2200 JONAH PRN Reason: Protocol Last Admin: 12/31/17 10:15 Dose: 0.5 mg Losartan Potassium (Cozaar) 50 mg PO DAILY JONAH PRN Reason: Protocol Last Admin: 12/31/17 10:15 Dose: 50 mg Metformin HCl (Glucophage) 500 mg PO DAILY JONAH PRN Reason: Protocol Last Admin: 12/31/17 10:16 Dose: 500 mg Mupirocin (Bactroban Ointment) 1 gm TOP BID JONAH PRN Reason: Protocol Last Admin: 12/31/17 10:19 Dose: Not Given Nystatin (Nystop Topical Powder) 1 gm TOP BID JONAH PRN Reason: Protocol Last Admin: 12/31/17 10:22 Dose: 1 applic Ondansetron HCl (Zofran Tab) 4 mg PO Q6 PRN PRN Reason: Nausea/Vomiting Pioglitazone HCl (Actos) 30 mg PO DAILY JONAH PRN Reason: Protocol Last Admin: 12/31/17 10:13 Dose: 30 mg - Labs Labs: 12/31/17 06:30 12/31/17 06:30 - Constitutional Appears: Well, Non-toxic, No Acute Distress - Extremities Exam Additional comments: Bilateral LE focused exam: VASC: DP/PT pulses are palpable 1/4. CFT < 3 sec to all digits. Temp gradient warm to cool from proximal to distal. 1+ pitting edema noted on the distal aspect of the medial leg and the dorsum of the foot B/L DERM: Superficial epidermal lysis with exposed dermal layer due to de-roofed bullae on the anterolateral right leg as well as the left anterior mid leg. Bases are fully granular with no fibrosis, no tunneling, no undermining, active serous fluid drainage noted, no malodor, no erythema. L anterior leg blister site noted to be almost fully healed with minimal serosanguinous drainage noted on bandage. Nails are dystrophic, discolored x10. No interdigital maceration NEURO: Protective sensation mildly intact ORTHO: MMT: 5/5 in all 4 directions at the ankle and STJ joints. No pain on palpation of the blistered sites. - Neurological Exam Neurological Exam: Alert, Awake, Oriented x3 - Psychiatric Exam Psychiatric exam: Normal Affect, Normal Mood Assessment and Plan - Assessment and Plan (Free Text) Assessment: 72 year old female patient with 1) bilateral superficial leg blisters and 2) cellulitis, resolved Plan: Patient seen and evaluated Discussed plan with attending Dr. Mack Labs, vitals and charts reviewed - afebrile; no leukocytosis Wound cx of R leg (+) for growth of Staph aureus Tib-fib x-rays reviewed - no signs of soft tissue emphysema Wounds cleaned with saline Dressing applied to RLE using xeroform, ABD, DSD L anterior leg superficial ulceration dressed with Optifoam bandage Continue IV abx as per ID - Zyvox Continue PT for increased ambulation and strengthening Podiatry to follow patient while in-house <Nelly Mack - Last Filed: 01/03/18 17:49> Objective - Vital Signs/Intake and Output Vital Signs (last 24 hours): Temp Pulse Resp BP Pulse Ox 98.2 F 66 18 136/69 98 01/01/18 10:00 01/01/18 10:00 01/01/18 10:00 01/01/18 10:00 01/01/18 10:00 - Labs Labs: 01/01/18 06:30 01/01/18 06:30 Attending/Attestation - Attestation I have personally seen and examined this patient.: Yes I have fully participated in the care of the patient.: Yes I have reviewed all pertinent clinical information, including history, physical exam and plan: Yes
[2017-12-31 12:28] VITALS: RESP 18
--- NOTE | 2017-12-31 14:07 | PN ---
DATE: 12/31/2017 SUBJECTIVE: I saw Nelly in the TCU. She is not happy overall. She is wanting to go home. She is on Actos, Amaryl, Ativan, Bactroban Cream, Cozaar, Ecotrin, Glucophage, insulin coverage, Lasix is now 40 daily p.o., nystatin, Zofran, and Zyvox p.o. She is off the IV antibiotic. She is getting physical therapy and she is improving. She did some stairs today for the first time. PHYSICAL EXAMINATION: VITAL SIGNS: 98.1 temp, 70 pulse, 143/79 blood pressure, 20 respiratory rate, and 98% O2 sat on room air. HEENT: Head is atraumatic, normocephalic. HEART: Regular rate. LUNGS: Decreased breath sounds, but clear. ABDOMEN: Soft, morbidly obese, nontender. EXTREMITIES: Have no edema since she has been in the hospital, really good. LABORATORY DATA: She has a 9.1 white count, 10 hemoglobin, 31.5 hematocrit with 280 platelets. She has a 141 sodium; potassium 3.9; BUN is 35; creatinine is 2.1, it is a little bit high; last sugar is 114; calcium is 9.5; total bili is 0.7; AST is 28; ALT is 25; alk phos 43. ASSESSMENT AND PLAN: She has a few issues going on. She had a right leg cellulitis, much improved; congestive heart failure, diabetes, renal insufficiency. Plan is to discharge her tomorrow home. Now, she is off all IVs and she is walking better. Dr. Garcia, Infectious Diseases had seen her and he was treating for a right lower lobe cellulitis, hypertension, diabetes, chronic renal failure. Now she is on Zyvox p.o. for 10 days. Also seen by [employer] auto body repairer for bilateral leg blisters and she is doing better. Continue with the Zyvox and the Bactroban Cream. Hopefully, we could discharge her tomorrow. Lamont Adler DO MTDShara
[2017-12-31 16:59] VITALS: O2SAT 98
--- NOTE | 2017-12-31 20:30 | PN ---
DATE: 12/31/2017 SUBJECTIVE: Patient was seen early this morning in the room 304. No fevers, no chills. No nausea, no vomiting. PHYSICAL EXAMINATION: VITAL SIGNS: Temperature is 98, blood pressure is 120/70, respiratory rate of 16. HEENT: Unremarkable. NECK: Supple. LUNGS: Decreased breath sounds. HEART: Normal S1, S2. ABDOMEN: Soft, nontender. LABORATORY DATA: White count of 9, hemoglobin of 10. Chemistry reveals a BUN of 35, creatinine of 2.5. Microbiology from acute side shows the right leg with Staph aureus and the urine with lactobacillus from October. The blood cultures are negative this admission. Review of orders reveals the patient to be on p.o. Zyvox. ASSESSMENT AND PLAN: This is a 72-year-old female with Staphylococcus aureus, right lower extremity skin and skin structure infection and cellulitis, obese patient with a BMI of 37, diabetic, hypertensive; on day number 4 of Zyvox, will complete 7 to 10 days; and leg appears to be improving. Khadar Lamas MD
[2018-01-01] MEDS: Insulin Reg-MEDIUM-Coverage SC SCH ×2 (06:37→12:27)
[2018-01-01 07:08] LABS: HEMOGLOBIN 9.9 g/dL (12.0-16.0); MEAN CELL VOLUME 89.3 fl (80.0-105.0); MEAN CORPUSCULAR HEMOGLOBIN 28.6 pg (25.0-35.0); RBC 3.46 10^6/uL (3.5-6.1); RED CELL DISTRIBUTION WIDTH 15.2 % (11.5-14.5); WHITE BLOOD COUNT 7.8 10^3/ul (4.5-11.0)
[2018-01-01 08:00] LABS: ALB/GLOB RATIO 1.3 (1.1-1.8); ALBUMIN 3.8 g/dL (3.0-4.8); CALCIUM 9.8 mg/dL (8.4-10.5)
[2018-01-01] MEDS: Nystatin 100,000 Units/gm Topical Pow(15 gm) TOP SCH (09:50)
[2018-01-01 09:53] VITALS: BP 136/69
--- NOTE | 2018-01-01 09:54 | PN ---
DATE: 01/01/2018 SUBJECTIVE: The patient is in bed, in no acute distress, nontoxic. PHYSICAL EXAMINATION: VITAL SIGNS: Temperature is 98, blood pressure is 127/40, respiratory rate of 18, heart rate of 68. HEENT: Unremarkable. NECK: Supple. LUNGS: Have decreased breath sound. HEART: Normal S1, S2. ABDOMEN: Soft, nontender. LABORATORY EXAMINATION: Reveals a white count of 7.8, hemoglobin of 9, platelets of 381. Chemistries reveals a BUN of 36, creatinine of 2.5. ASSESSMENT AND PLAN: This is a 72-year-old female seen earlier this morning in room 304 with a staph aureus right lower extremity skin and skin structure infection and cellulitis in an obese patient with a BMI of 37 and diabetes and diabetic hypertensive, day #5 of Zyvox, would complete 7 to 10 days. Review of the orders confirms the patient's Zyvox to be active. We will follow with you. Khadar Lamas MD
--- NOTE | 2018-01-01 14:00 | CP.PCM.PN ---
<Iman Wills - Last Filed: 01/01/18 13:59> Subjective - Date & Time of Evaluation Date of Evaluation: 01/01/18 Time of Evaluation: 13:59 - Subjective Subjective: Podiatry Consult Note: Dr. Mack/Dr. German 72 year old female patient seen and evaluated in TCU for bilateral leg superficial blisters, right worse than left. Patient denies having any pain to the legs today. States PT has been going well and she will be getting discharged later today. Plans to follow up with Dr. Mack sometime next week. States dressings have remained clean, dry and intact. Denies F/N/V/C/SOB/CP/EDGAR/ diarrhea. Objective - Vital Signs/Intake and Output Vital Signs (last 24 hours): Temp Pulse Resp BP Pulse Ox 98.3 F 68 18 136/69 98 12/31/17 16:58 12/31/17 16:58 12/31/17 16:58 01/01/18 09:51 12/31/17 16:58 - Medications Medications: Current Medications Aspirin (Ecotrin) 81 mg PO 0800 JONAH PRN Reason: Protocol Last Admin: 01/01/18 08:28 Dose: Not Given Furosemide (Lasix) 40 mg PO DAILY JONAH Last Admin: 01/01/18 09:51 Dose: 40 mg Glimepiride (Amaryl) 4 mg PO HS JONAH PRN Reason: Protocol Last Admin: 12/31/17 22:29 Dose: 4 mg Insulin Human Regular (Humulin R Med) 0 units SC ACHS JONAH PRN Reason: Protocol Last Admin: 01/01/18 12:27 Dose: 1 units Linezolid (Zyvox) 600 mg PO BID JONAH PRN Reason: Protocol Last Admin: 01/01/18 09:51 Dose: 600 mg Lorazepam (Ativan) 0.5 mg PO 1000,2200 JONAH PRN Reason: Protocol Last Admin: 01/01/18 09:49 Dose: 0.5 mg Losartan Potassium (Cozaar) 50 mg PO DAILY JONAH PRN Reason: Protocol Last Admin: 01/01/18 09:50 Dose: 50 mg Metformin HCl (Glucophage) 500 mg PO DAILY JONAH PRN Reason: Protocol Last Admin: 01/01/18 09:50 Dose: 500 mg Mupirocin (Bactroban Ointment) 1 gm TOP BID JONAH PRN Reason: Protocol Last Admin: 01/01/18 09:50 Dose: 1 applic Nystatin (Nystop Topical Powder) 1 gm TOP BID JONAH PRN Reason: Protocol Last Admin: 01/01/18 09:50 Dose: 1 applic Ondansetron HCl (Zofran Tab) 4 mg PO Q6 PRN PRN Reason: Nausea/Vomiting Pioglitazone HCl (Actos) 30 mg PO DAILY JONAH PRN Reason: Protocol Last Admin: 01/01/18 09:49 Dose: 30 mg - Labs Labs: 01/01/18 06:30 01/01/18 06:30 - Constitutional Appears: Well, Non-toxic, No Acute Distress - Extremities Exam Additional comments: Bilateral LE focused exam: VASC: DP/PT pulses are palpable 1/4. CFT < 3 sec to all digits. Temp gradient warm to cool from proximal to distal. 1+ pitting edema noted on the distal aspect of the medial leg and the dorsum of the foot B/L DERM: Superficial epidermal lysis with exposed dermal layer due to de-roofed bullae on the anterolateral right leg as well as the left anterior mid leg. Bases are fully granular with no fibrosis, no tunneling, no undermining, active serous fluid drainage noted, no malodor, no erythema. L anterior leg blister site noted to be almost fully healed with minimal serosanguinous drainage noted on bandage. Nails are dystrophic, discolored x10. No interdigital maceration NEURO: Protective sensation mildly intact ORTHO: MMT: 5/5 in all 4 directions at the ankle and STJ joints. No pain on palpation of the blistered sites. - Neurological Exam Neurological Exam: Alert, Awake, Oriented x3 - Psychiatric Exam Psychiatric exam: Normal Affect, Normal Mood Assessment and Plan - Assessment and Plan (Free Text) Assessment: 72 year old female patient with 1) bilateral superficial leg blisters and 2) cellulitis, resolved Plan: Patient seen and evaluated Discussed plan with attending Dr. German Labs, vitals and charts reviewed - afebrile; no leukocytosis Wound cx of R leg (+) for growth of Staph aureus Tib-fib x-rays reviewed - no signs of soft tissue emphysema Wounds cleaned with saline Dressing applied to RLE using xeroform, ABD, DSD L anterior leg superficial ulceration dressed with Optifoam bandage Continue IV abx as per ID - Zyvox Continue PT for increased ambulation and strengthening Pt stable for discharge from podiatry standpoint Upon D/C pt to follow up in office with Dr. Mack within 1 week for continued management Podiatry to follow patient while in-house <MaxiShahzad - Last Filed: 01/01/18 15:44> Objective - Vital Signs/Intake and Output Vital Signs (last 24 hours): Temp Pulse Resp BP Pulse Ox 98.3 F 68 18 136/69 98 12/31/17 16:58 12/31/17 16:58 12/31/17 16:58 01/01/18 09:51 12/31/17 16:58 - Medications Medications: Current Medications Aspirin (Ecotrin) 81 mg PO 0800 JONAH PRN Reason: Protocol Last Admin: 01/01/18 08:28 Dose: Not Given Furosemide (Lasix) 40 mg PO DAILY JONAH Last Admin: 01/01/18 09:51 Dose: 40 mg Glimepiride (Amaryl) 4 mg PO HS JONAH PRN Reason: Protocol Last Admin: 12/31/17 22:29 Dose: 4 mg Insulin Human Regular (Humulin R Med) 0 units SC ACHS JONAH PRN Reason: Protocol Last Admin: 01/01/18 12:27 Dose: 1 units Linezolid (Zyvox) 600 mg PO BID JONAH PRN Reason: Protocol Last Admin: 01/01/18 09:51 Dose: 600 mg Lorazepam (Ativan) 0.5 mg PO 1000,2200 JONAH PRN Reason: Protocol Last Admin: 01/01/18 09:49 Dose: 0.5 mg Losartan Potassium (Cozaar) 50 mg PO DAILY JONAH PRN Reason: Protocol Last Admin: 01/01/18 09:50 Dose: 50 mg Metformin HCl (Glucophage) 500 mg PO DAILY JONAH PRN Reason: Protocol Last Admin: 01/01/18 09:50 Dose: 500 mg Mupirocin (Bactroban Ointment) 1 gm TOP BID JONAH PRN Reason: Protocol Last Admin: 01/01/18 09:50 Dose: 1 applic Nystatin (Nystop Topical Powder) 1 gm TOP BID JONAH PRN Reason: Protocol Last Admin: 01/01/18 09:50 Dose: 1 applic Ondansetron HCl (Zofran Tab) 4 mg PO Q6 PRN PRN Reason: Nausea/Vomiting Pioglitazone HCl (Actos) 30 mg PO DAILY JONAH PRN Reason: Protocol Last Admin: 01/01/18 09:49 Dose: 30 mg - Labs Labs: 01/01/18 06:30 01/01/18 06:30 Attending/Attestation - Attestation I have personally seen and examined this patient.: Yes I have fully participated in the care of the patient.: Yes I have reviewed all pertinent clinical information, including history, physical exam and plan: Yes
[2018-01-01 16:22] VITALS: PULSE 66; TEMP 98.2
--- NOTE | 2018-01-02 06:09 | DS ---
HISTORY OF PRESENT ILLNESS: I saw her resting comfortably in bed, in the TCU. She is walking well, doing much better. Legs are better. She is off the IV antibiotics. She is going to go home on Actos, Amaryl, Ativan, Bactroban ointment, Cozaar, Ecotrin, Glucophage, Lasix, nystatin powder, Zofran and Zyvox. PHYSICAL EXAMINATION: VITAL SIGNS: She has a 98.3 temp, 68 pulse, 127/49 blood pressure, 18 respiratory rate, 98% O2 sat on room air. HEENT: Head is atraumatic, normocephalic. HEART: Regular rate. LUNGS: Clear to auscultation. ABDOMEN: Soft, obese, nontender. EXTREMITIES: No edema. The legs are much less red. The skin is healing up nicely. LABORATORY DATA: She has a 7.8 white count, 9.9 hemoglobin, 381 platelets. 141 sodium, potassium 3.9, BUN 35, creatinine 2.5. Last blood sugar was , calcium is 9.5. Total bili is 0.7. AST is 20, ALT is 25, alk phos 43, total protein 6.6. ASSESSMENT AND PLAN: She was here for cellulitis of the legs and she was on IV antibiotics and now, she is doing better with physical therapy. She will be discharged. Follow up as an outpatient. Lamont Adler DO MTDD
== END 2018-01-01 16:48 | disposition home or self-care (01) | DRG 603 ==
LOC: TRCU 15:08
PROVIDERS: ADMIT Family Medicine; ATTEND Family Medicine
PROC: 3E03329 Introduction of Other Anti-infective into Peripheral Vein, Percutaneous Approach (ICD-10-PCS; 2017-12-29)
PROC: 0HBRXZZ Excision of Toe Nail, External Approach (ICD-10-PCS; 2017-12-29)
PROC: 0HBRXZZ Excision of Toe Nail, External Approach (ICD-10-PCS; 2017-12-29)
PROC: 0HBRXZZ Excision of Toe Nail, External Approach (ICD-10-PCS; 2017-12-29)
PROC: 0HBRXZZ Excision of Toe Nail, External Approach (ICD-10-PCS; 2017-12-29)
PROC: 0HBRXZZ Excision of Toe Nail, External Approach (ICD-10-PCS; 2017-12-29)
PROC: 0HBRXZZ Excision of Toe Nail, External Approach (ICD-10-PCS; 2017-12-29)
PROC: 0HBRXZZ Excision of Toe Nail, External Approach (ICD-10-PCS; 2017-12-29)
PROC: 0HBRXZZ Excision of Toe Nail, External Approach (ICD-10-PCS; 2017-12-29)
PROC: 0HBRXZZ Excision of Toe Nail, External Approach (ICD-10-PCS; 2017-12-29)
PROC: 0HBRXZZ Excision of Toe Nail, External Approach (ICD-10-PCS; 2017-12-29)
PROC: F07Z9FZ Gait Training/Functional Ambulation Treatment using Assistive, Adaptive, Supportive or Protective Equipment (ICD-10-PCS; principal; 2017-12-31)
PROC: F07L6YZ Therapeutic Exercise Treatment of Musculoskeletal System - Lower Back / Lower Extremity using Other Equipment (ICD-10-PCS; 2017-12-31)
PROC: F08Z4FZ Home Management Treatment using Assistive, Adaptive, Supportive or Protective Equipment (ICD-10-PCS; 2017-12-31)
DX: L03.115 Cellulitis of right lower limb (principal); Z79.2 Long term (current) use of antibiotics; L97.829 Non-pressure chronic ulcer of other part of left lower leg with unspecified severity; I13.0 Hypertensive heart and chronic kidney disease with heart failure and stage 1 through stage 4 chronic kidney disease, or unspecified chronic kidney disease; E11.622 Type 2 diabetes mellitus with other skin ulcer; N18.9 Chronic kidney disease, unspecified; I50.9 Heart failure, unspecified; M19.90 Unspecified osteoarthritis, unspecified site; E11.22 Type 2 diabetes mellitus with diabetic chronic kidney disease; M51.9 Unspecified thoracic, thoracolumbar and lumbosacral intervertebral disc disorder; F41.9 Anxiety disorder, unspecified; F32.9 Major depressive disorder, single episode, unspecified; L60.3 Nail dystrophy; B95.61 Methicillin susceptible Staphylococcus aureus infection as the cause of diseases classified elsewhere; E66.9 Obesity, unspecified; Z68.37 Body mass index [BMI] 37.0-37.9, adult; Z79.84 Long term (current) use of oral hypoglycemic drugs

== ENCOUNTER 2018-12-30 12:49 | Outpatient (CLI) | payer MEDICARE | END 2018-12-30 12:50 | disposition home or self-care (01) | LOC: RAD 12:49 ==